=== PATIENT | male | born 1940 | race Caucasian/White ===

== ENCOUNTER 2020-01-18 11:30 | Outpatient (REF) | payer MEDICARE, SELFPAY | END 2020-01-18 11:31 | disposition home or self-care (01) | LOC: HO.HMGCLDS 11:30 | PROVIDERS: Visit Provider Internal Medicine | DX: Z20.828 Contact with and (suspected) exposure to other viral communicable diseases (principal) | CPT/HCPCS: C9803; U0003 ==

== ENCOUNTER 2020-05-30 10:22 | Outpatient (REF) | payer MEDICARE, SELFPAY ==
--- NOTE | ~2020-05-30 | XR_ITS ---
EXAMINATION: BILATERAL FOOT X-RAY CLINICAL INFORMATION: Open wound COMPARISON: None TECHNIQUE: 3 views of each foot FINDINGS: Left: There is hallux valgus deformity at the first MTP joint. Bone alignment is otherwise normal. No fracture or dislocation is seen. There is arthritis at the first MTP joint with joint space narrowing and osteophyte formation. No x-ray evidence of osteomyelitis is seen. There is a small amount of air in the soft tissues adjacent to the medial talar navicular joint. No radiopaque soft tissue foreign body is seen. There are calcaneal spurs. Right foot: There is hallux valgus deformity at the first MTP joint. Bone alignment is otherwise normal. No fracture or dislocation is seen. There is arthritis at the first MTP joint with joint space narrowing and osteophyte formation. No x-ray evidence of osteomyelitis is seen. There is a small amount of air in the soft tissues adjacent to the medial talar navicular joint. No radiopaque soft tissue foreign body is seen. There are calcaneal spurs. 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
--- NOTE | ~2020-05-30 | XR_ITS ---
EXAMINATION: BILATERAL FOOT X-RAY CLINICAL INFORMATION: Open wound COMPARISON: None TECHNIQUE: 3 views of each foot FINDINGS: Left: There is hallux valgus deformity at the first MTP joint. Bone alignment is otherwise normal. No fracture or dislocation is seen. There is arthritis at the first MTP joint with joint space narrowing and osteophyte formation. No x-ray evidence of osteomyelitis is seen. There is a small amount of air in the soft tissues adjacent to the medial talar navicular joint. No radiopaque soft tissue foreign body is seen. There are calcaneal spurs. Right foot: There is hallux valgus deformity at the first MTP joint. Bone alignment is otherwise normal. No fracture or dislocation is seen. There is arthritis at the first MTP joint with joint space narrowing and osteophyte formation. No x-ray evidence of osteomyelitis is seen. There is a small amount of air in the soft tissues adjacent to the medial talar navicular joint. No radiopaque soft tissue foreign body is seen. There are calcaneal spurs. 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 Bilateral calcaneal spurs.
== END 2020-05-30 10:23 | disposition home or self-care (01) ==
LOC: HO.XRAY 10:22
PROVIDERS: PCP Registered Nurse; Visit Provider Student in an Organized Health Care Education/Training Program
DX: L85.3 Xerosis cutis (principal); S81.801A Unspecified open wound, right lower leg, initial encounter
CPT/HCPCS: 73630

== ENCOUNTER 2022-12-13 12:45 | Outpatient (REF) | payer MEDICARE, SELFPAY ==
[2022-12-13 15:04] LABS: Alanine Aminotransferase 21 U/L (0-40); Albumin Level 3.7 g/dL (3.5-5.0); Alkaline Phosphatase 132 U/L (39-117); Anion Gap 13 (12-20); Aspartate Amino Transferase 17 U/L (5-37); Bilirubin Direct 0.2 mg/dL (0.0-0.5); Bilirubin Total 0.5 mg/dL (0.0-1.0); Blood Urea Nitrogen 19 mg/dL (9-16); Calcium 9.1 mg/dL (8.4-10.2); Carbon Dioxide 25 mmol/L (22-29); Chloride 107 mmol/L (96-108); Cholesterol 176 mg/dL (<200); Estimated Glomerular Filt Rate > 60; Glucose Random 120 mg/dL (60-115); HDL Cholesterol 37 mg/dL (>40); LDL Cholesterol Calculated 102 mg/dL (<100); Potassium 3.9 mmol/L (3.3-5.1); Sodium 141 mmol/L (135-145); Total Protein 6.4 g/dL (6.5-8.0); Triglycerides 186 mg/dL (<150)
[2022-12-13 15:08] LABS: TSH reflex Free T4 3.16 uIU/mL (0.32-4.0)
== END 2022-12-13 12:46 | disposition home or self-care (01) ==
LOC: HO.CHCLDS 12:45
PROVIDERS: Visit Provider Student in an Organized Health Care Education/Training Program
DX: I10 Essential (primary) hypertension (principal); E03.9 Hypothyroidism, unspecified
CPT/HCPCS: 36415; 80048; 80061; 80076; 84443

== ENCOUNTER 2023-12-23 10:51 | Outpatient (AMB) | payer OTHER, SELFPAY ==
--- NOTE | 2023-12-23 10:54 | MHC.OFFWIV ---
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 He has been seen at multiple Urgent cares for similar symptoms. He was admitted yesterday at [facility] for cough, chest Xray negative. Pt and family left ED without being seen yesterday. Today he returns with daughter for similar concerns asking for Treatment. Denies fevers, chills, nausea and vomiting. He has been using OTC Cough remedies with no relief. [facility] Medical History (Updated 12/23/23 @ 11:17 by Joie Mendez NP) Cough Social History Patient Tobacco Use Status: Never used Tobacco Review of Systems Const All systems reviewed & are unremarkable except as noted in HPI and below Physical Exam Vital Signs: Last Vital Signs Temp 98 F 12/23/23 10:57 Pulse 63 12/23/23 10:57 BP 162/72 H 12/23/23 10:57 Pulse Ox 96 12/23/23 10:57 Oxygen Delivery Method Room Air 12/23/23 10:57 BMI result Body Mass Index 31.2 Const General: cooperative, comfortable and no acute distress Nutritional Appearance: overweight Orientation/consciousness: patient oriented x3 Resp Effort & Inspection: normal respiratory effort and able to speak in complete sentences Auscultation: no crackles, no rales, no rhonchi and wheezes Cardio Heart sounds: S1 normal heart sound present and S2 normal heart sound present Neuro General: patient oriented x3, gait normal and moves all extremities Psych Speech and movement: Normal speech and movement present Results AMB Rapid Strep AMB Rapid Strep Negative Last Edit by Irwin Baez CMA on 12/23/23 11:11 Results Reviewed Results Reviewed: Laboratory Last Values Strep Scn Rapid Clinic Negative 10/29/24 11:10 Assessment & Plan Assessment & Plan (1) Cough: Code(s): R05.9 - Cough, unspecified Qualifiers: Cough type: subacute Qualified Code(s): R05.2 - Subacute cough Plan: Reviewed Xray report from [facility] (Daughter had on Pt portal). OTC cough remedies Rest. Ordered Prednisone. (2) Acute respiratory disease: Code(s): J06.9 - Acute upper respiratory infection, unspecified Plan: Ordered SARs. Orders: Orders SARS-CoV2/FLU/RSV Today J06.9 - Acute upper respiratory infection, unspecified AMB Rapid Strep Screen Today Z13.9 - Encounter for screening, unspecified Medications: New prednisone 50 mg PO DAILY 5 days 5 tabs 0RF R05.2 - Subacute cough dextromethorphan-guaifenesin 5-100 mg/5 mL (Robitussin Cough-Chest Congestion DM) 10 mL PO Q4-8H PRN 1,000 mL 0RF cough R05.2 - Subacute cough Coding Level of Care Code New Pt Level 3 (38807) Diagnoses Subacute cough R05.2 Cough type: subacute Acute respiratory disease J06.9 Time Spent (min) 15
[2023-12-23 10:57] VITALS: BP 162/72; PULSE 63; TEMP 36.6; O2SAT 96; BMI 31.2
== END 2023-12-23 11:31 | disposition home or self-care (01) ==
PROVIDERS: PCP Registered Nurse; Visit Provider Nurse Practitioner Family
DX: R05.2 Subacute cough (principal); J06.9 Acute upper respiratory infection, unspecified; Z13.9 Encounter for screening, unspecified

== ENCOUNTER 2023-12-23 10:51 | Outpatient (REF) | payer MEDICARE, SELFPAY ==
[2023-12-23 14:17] LABS: Influenza A PCR NEGATIVE (Negative); Influenza B PCR NEGATIVE (Negative); Resp Syncy Virus RNA Qual PCR NEGATIVE (Negative); SARS COV2 PCR INHOUSE NEGATIVE (Negative)
== END 2023-12-23 10:52 | disposition home or self-care (01) ==
LOC: HO.LAB 10:51
PROVIDERS: PCP Registered Nurse; Visit Provider Nurse Practitioner Family
DX: J06.9 Acute upper respiratory infection, unspecified (principal); R05.2 Subacute cough; Z13.9 Encounter for screening, unspecified
CPT/HCPCS: 0241U; 87880; 99202

== ENCOUNTER 2024-01-26 11:13 | Outpatient (REF) | payer OTHER, SELFPAY ==
[2024-01-26 19:52] LABS: Influenza A PCR NEGATIVE (Negative); Influenza B PCR NEGATIVE (Negative); Resp Syncy Virus RNA Qual PCR POSITIVE (Negative); SARS COV2 PCR INHOUSE NEGATIVE (Negative)
== END 2024-01-26 11:14 | disposition home or self-care (01) ==
LOC: HO.LNP 11:13
PROVIDERS: PCP Registered Nurse; Visit Provider Registered Nurse
DX: J06.9 Acute upper respiratory infection, unspecified (principal)
CPT/HCPCS: 0241U; 99212

== ENCOUNTER 2024-01-26 11:13 | Outpatient (AMB) | payer OTHER, SELFPAY ==
--- NOTE | 2024-01-26 13:07 | MHC.OFFWIV ---
Intake Vital Signs 01/26/24 13:08 Height 5 ft 7 in Weight 192 lb BMI 30.1 BP 150/90 H Blood Pressure Location Lt brachial Position Sitting Pulse 64 Pulse Source Pulse Oximeter Temp 99.1 F Temp Source Oral Pulse Oximetry (%) 99 Oxygen Delivery Method Room Air Intake Visit Reasons: EP cold, body aches, cough, mucus Intake Note: Patient here for SOB, wheezing, mucus, cough and congestion which started about 3 days ago. Patient Tobacco Use Status: Never used Tobacco Allergies No Known Allergies Allergy (Verified 01/26/24 13:22) Do you need a note to return to daycare/school/sports/work: No HPI EP cold, body aches, cough, mucus HPI Details This note is constructed using voice recognition software. While every effort has been made to ensure accuracy, matrix bath attendant errors may have been included. The patient is a 83 year old man who presents to the clinic today with body aches, cough, congestion, fevers for the past 3 days. He has no known sick contacts, did have recent URI about a month ago. Did get better after that. He has not taken any medication to help this better other than ibuprofen, which does seem to help the fevers and the body aches. The body aches are generally widespread. [facility] Medical History (Updated 12/23/23 @ 11:17 by Joie Mendez NP) Cough Social History Patient Tobacco Use Status: Never used Tobacco Review of Systems Const All systems reviewed & are unremarkable except as noted in HPI and below Physical Exam Vital Signs: Last Vital Signs Temp 99.1 F 01/26/24 13:08 Pulse 64 01/26/24 13:08 BP 150/90 H 01/26/24 13:08 Pulse Ox 99 01/26/24 13:08 Oxygen Delivery Method Room Air 01/26/24 13:08 BMI result Body Mass Index 30.1 Const General: cooperative, healthy appearing, comfortable and no acute distress Orientation/consciousness: patient oriented x3 Limitations: no limitations HEENT Head: Yes normal to inspection Ears: hearing grossly normal bilaterally, external ears normal and TM's normal bilaterally General nose exam: Normal external nose present, Normal nares present and No nasal discharge present Face and sinus: Yes normal facial exam and Yes sinuses nontender Mouth: Normal oral and palatal mucosa present and moist mucous membranes Throat: Yes tonsils normal, Yes uvula midline and Yes posterior oropharynx abnormal (Erythema) Eyes General: appearance normal, both eyes and all related structures Neck Neck: Yes normal visual inspection Resp Effort & Inspection: normal respiratory effort, able to speak in complete sentences, Actively coughing, no respiratory distress, not tachypneic, no tripod positioning and no use of accessory muscles Auscultation: clear to auscultation bilaterally Cardio Jugular venous distension: no JVD Rate: regular rate Rhythm: regular rhythm Heart sounds: S1 normal heart sound present, S2 normal heart sound present, no click, no gallops, no murmurs and no rubs Skin General skin exam: no rashes or lesions noted, elasticity normal and turgor normal Neuro General: patient oriented x3 Extrem General: Yes normal to inspection and Yes no clubbing, cyanosis or edema Assessment & Plan Assessment & Plan (1) URI (upper respiratory infection): Code(s): J06.9 - Acute upper respiratory infection, unspecified Qualifiers: URI type: unspecified URI Qualified Code(s): J06.9 - Acute upper respiratory infection, unspecified Plan: Viral swab obtained to rule out Covid, Influenza, and RSV based on symptoms. Advised mask wearing while symptomatic and quarantine per current CDC guidelines. Reviewed at home support methods including hydration, humidification, vix vapor rub, sinus rinse, and otc treatment options. Discussed treatment with antiviral therapy for covid with paxlovid and with Tamiflu for influenza, including appropriate use and side effects, and need to start medication within 5 day of symptom onset, preferably within 48 hours of symptom onset. Patient wishes to proceed with antiviral therapy for flu. Benzonatate sent for symptomatic management. Advised follow up with worsening symptoms such as dyspnea at rest, which would require emergent evaluation. Orders: Orders SARS-CoV2/FLU/RSV Today J06.9 - Acute upper respiratory infection, unspecified Medications: New benzonatate 100 mg PO TID PRN 15 caps 0RF Cough 5 days Coding Level of Care Code Est Pt Level 3 (10562) Diagnoses Upper respiratory tract infection, unspecified type J06.9 URI type: unspecified URI
[2024-01-26 13:08] VITALS: BP 150/90; PULSE 64; TEMP 37.3; O2SAT 99; BMI 30.1
== END 2024-01-26 13:51 | disposition home or self-care (01) ==
PROVIDERS: PCP Registered Nurse; Visit Provider Registered Nurse
DX: J06.9 Acute upper respiratory infection, unspecified (principal)

== ENCOUNTER 2024-08-19 11:57 | Outpatient (REF) | payer OTHER, SELFPAY ==
--- OUTSIDE RECORDS SUMMARY | 2024-08-19 14:21 | XMS_ITS | Clinical Summary ---
Author Organization [facility] Address [address] [place] [address] Phone Care Team Providers Care Business Development Professional Name Role Phone Meche Dumont MD Primary Care Provider [phone] Allergies No known active allergies Medications No known medications Active Problems No known active problems Social History Tobacco Use Types Packs/Day Years Used Date Smoking Tobacco: Never Assessed Sex and Gender Information Value Date Recorded Sex Assigned at Not on file Legal Sex Male 2:26 PM EST Gender Identity Not on file Sexual Orientation Not on file Obstetrics History Last Filed Vital Signs Vital Sign Reading Time Taken Comments Blood Pressure 155/61 01/21/2024 9:23 AM EST Pulse 62 01/21/2024 9:23 AM EST Temperature 36.7 C (98.1 F) 01/21/2024 9:23 AM EST Respiratory Rate 18 01/21/2024 9:23 AM EST Oxygen Saturation 99% 01/21/2024 9:23 AM EST Inhaled Oxygen Concentration - - Weight 89.8 kg (198 lb) 01/21/2024 9:23 AM EST Height 167.6 cm (5' 6 ) 01/21/2024 9:23 AM EST Body Mass Index 31.96 01/21/2024 9:23 AM EST Plan of Treatment Health Maintenance Due Date Last Done Comments Pneumococcal Vaccine: 50+ Years (1 of 1 - PCV) 10/13/1991 Zoster Vaccines (1 of 2) 10/13/1991 RSV Immunization Adult Patients (1 - 1-dose 75+ series) 2016 Depression Screening 01/23/2022 Falls Risk Assessment 01/23/2022 Medicare Annual Wellness Visit 01/23/2022 Social Influencers of Health Screening 01/23/2022 COVID-19 Vaccine (3 - 2023-2 5 season) 2023 02/14/2021, 01/24/2021 Hypertension/CHF/CAD Annual BMP Blood Test 01/21/2024 Influenza Vaccine (Season Ended) 2024 11/24/2019, 01/08/2019 Cholesterol Screening (Lipid Panel) 12/14/2027 12/13/2022 DTaP,Tdap,and Td Vaccines (2 - Td or Tdap) 11/23/2029 11/24/2019 HIB Vaccines Aged Out No longer eligi ble based on patient's age to complete this topic HPV Vaccines Aged Out No longer eligi ble based on patient's age to complete this topic Hepatitis A Vaccines Aged Out No long er eligible based on patient's age to complete this topic Hepatitis B Vaccines Aged Out No long er eligible based on patient's age to complete this topic IPV Vaccines Aged Out No longer eligi ble based on patient's age to complete this topic MMR Vaccines Aged Out No longer eligi ble based on patient's age to complete this topic Meningococcal ACWY Vaccine Aged Out N o longer eligible based on patient's age to complete this topic Meningococcal B Vaccine Aged Out No l onger eligible based on patient's age to complete this topic RSV Immunization Patients Under 20 months Aged Out No longer eligible b ased on patient's age to complete this topic Varicella Vaccines Aged Out No longer eligible based on patient's age to complete this topic Insurance [facility] [employer] Member Subscriber Plan / Payer (Ef fective 2016-Present) Name:Roger Harper Relation to Subscriber:Self Name:Roger Harper Payer ID:[id number] Group ID:[id number] Type:Not on file Address: [place] [address] [address] [id number] Care Teams Business Development Professional Relationship Specialty Start Date End Date Meche Dumont MD [address] [place] [id number] PCP - General Family Medicine 01/21/24
[2024-08-19 14:30] LABS: MANUAL DIFF FLAG NO
[2024-08-19 14:37] LABS: Basophils Absolute Auto 0.1 X10*3/uL (0.0-0.2); Basophils Percent Auto 0.7 % (0-2); Eosinophils Absolute Auto 0.1 X10*3/uL (0.0-0.4); Eosinophils Percent Auto 1.5 % (0-4); Hematocrit 45.5 % (42.0-52.0); Hemoglobin 14.9 g/dl (14.0-18.0); Imm Gran Abs Auto 0.15 X10*3/uL (0.00-0.03); Lymphocytes Absolute Auto 1.5 X10*3/uL (1.2-4.9); Lymphocytes Percent Auto 19.7 % (20-40); Mean Corpuscular HGB Conc 32.7 g/dl (31.0-36.0); Mean Corpuscular Hemoglobin 26.2 pg (27.0-33.0); Mean Platelet Volume 10.8 fL (9.4-12.4); Monocytes Absolute Auto 0.6 X10*3/uL (0.1-1.2); Monocytes Percent Auto 7.7 % (2-11); Neutrophils Absolute Auto 5.1 x10*3/uL (2.0-8.3); Neutrophils Percent Auto 68.4 % (45-73); Platelet Count 295 X10*3/uL (160-400); Red Blood Count 5.69 X10*6/uL (4.60-5.80); Red Cell Distribution Width 15.2 % (11.0-16.0); White Blood Count 7.5 X10*3/uL (4.8-10.8)
[2024-08-19 14:53] LABS: Anion Gap 9 (12-20); Blood Urea Nitrogen 18 mg/dL (9-16); C Reactive Protein 2.39 mg/dL (< or = 0.50); Calcium 8.5 mg/dL (8.4-10.2); Carbon Dioxide 27 mmol/L (22-29); Chloride 109 mmol/L (96-108); Estimated Glomerular Filt Rate > 60; Glucose Random 104 mg/dL (60-115); Potassium 4.4 mmol/L (3.3-5.1); Sodium 141 mmol/L (135-145)
[2024-08-19 15:18] LABS: Erythrocyte Sedimentation Rate 5 MM/HR (0-15)
== END 2024-08-19 11:58 | disposition home or self-care (01) ==
LOC: HO.CHCLDS 11:57
PROVIDERS: Visit Provider Internal Medicine
DX: R05.1 Acute cough (principal)
CPT/HCPCS: 36415; 80048; 85025; 85652; 86140

== ENCOUNTER 2024-08-19 13:01 | Outpatient (REF) | payer OTHER, SELFPAY ==
--- NOTE | ~2024-08-19 | XR_ITS ---
EXAMINATION: XR CHEST CLINICAL INFORMATION: cough COMPARISON: 03/13/2017. TECHNIQUE: 2 views of the chest were obtained. FINDINGS: The cardiac, hilar, and mediastinal contours are normal. The lungs are clear bilaterally. There is no pneumothorax or pleural effusion. There is no focal osseous or soft tissue abnormality. XR/XR chest 2V IMPRESSION: No active pulmonary disease. Electronically signed by: Freddy Albarran MD 08/19/2024 01:43 PM EDT
== END 2024-08-19 13:02 | disposition home or self-care (01) ==
LOC: HO.XRAY 13:01
PROVIDERS: PCP Student in an Organized Health Care Education/Training Program; Visit Provider Internal Medicine
DX: R05.1 Acute cough (principal)
CPT/HCPCS: 71046

== ENCOUNTER → 2024-08-19 13:06 | Outpatient (BNV) | payer OTHER, SELFPAY | PROVIDERS: PCP Student in an Organized Health Care Education/Training Program; Visit Provider Radiology Diagnostic Radiology | DX: R05.9 Cough, unspecified (principal) | CPT/HCPCS: 71046 ==

== ENCOUNTER 2024-09-01 09:00 | Outpatient (REF) | payer OTHER, SELFPAY | END 2024-09-01 09:01 | disposition home or self-care (01) | LOC: HO.HMGCX 09:00 | PROVIDERS: PCP Internal Medicine; Visit Provider Internal Medicine | DX: I10 Essential (primary) hypertension (principal); M25.511 Pain in right shoulder; R42 Dizziness and giddiness; R03.0 Elevated blood-pressure reading, without diagnosis of hypertension; H91.93 Unspecified hearing loss, bilateral; E66.3 Overweight; Z76.89 Persons encountering health services in other specified circumstances; Z68.29 Body mass index [BMI] 29.0-29.9, adult | CPT/HCPCS: 99202 ==

== ENCOUNTER 2024-09-01 09:00 | Outpatient (AMB) | payer OTHER, SELFPAY ==
[2024-09-01 09:06] VITALS: BP 156/80; PULSE 68; TEMP 36.2; O2SAT 99; BMI 29.7
--- NOTE | 2024-09-01 09:06 | A.OFFPC_ITS ---
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 Gunite Nozzle Operator Required: No Allergies No Known Allergies Allergy (Verified 09/01/24 09:10) Medication List - Last Reconciled 09/01/24 by Juancarlos Shaffer MD albuterol sulfate 90 mcg/actuation (Ventolin HFA) 2 puffs inhalation Q4-6H PRN benzonatate 100 mg PO TID PRN 5 days fluticasone propionate 50 mcg/actuation 1 spray intranasal Q12H Tobacco use date assessed: 09/01/24 Dental Screening Did you have a dental visit in the last 12 months?: Yes Did you have a dental problem in the last 6 months where you did not have access to dental care?: No Was dental information given to patient?: Patient has dentist HPI OK chicho RAINEY PAPER CORE MACHINE OPERATOR appointment HPI Details New patient establish care History - The patient is an 83-year-old male pre senting with shoulder pain and hypertension. He is here with his - The patient reports shoulder pain pers isting for over eight months, which radiates down his arm. The pain intensifies when lying down and requires him to support his arm due to the discomfort. - The pain began more than eight months ago and has progressively affected movement, particularly noticed at night. - The patient has been taking ibuprofen and Tylenol for pain relief. However medications are not working he is unable to lift his right arm above his head - The patient experiences nocturnal dizz iness, especially upon waking. - An x-ray of the shoulder and neck was performed at some other facility that patient can not recall about a month ago, but results are unavailable at this visit. - The patient forgets to take his prescr ibed antihypertensive medication on occasion. - BMI is elevated need to lose weight - patient is a very hard of hearing, had a hearing test and hearing aid was recommended, he got the hearing it but felt discomfort so declined to use it That was long time ago patient is requesting a new audiology appointment he will consider A New Hearing fit Medical History: - Essential Hypertension - right shoulder pain - overweight - nocturnal dizziness Health Maintenance - The patient has no history of colonosc opy. Medications - Hydrochlorothiazide with enalapril for hypertension. - Ibuprofen for pain management in the p ast. - Tylenol for pain relief. - No routine use of hearing aids despite hearing difficulties. Social History - The patient does not consume breakfast on the day of the visit due to a planned fasting blood test. Family History - Family history of diabetes mellitus. Problem List - Essential Hypertension - Shoulder Pain right - Hearing Loss bilateral - Varicose Veins lower extremity - elevated BMI Patient Instructions - Take blood pressure medication every d ay. - Use a method such as placing medicatio n next to a toothbrush to aid in remembering daily doses. - Undergo blood tests today, including c hecks on liver, kidney, vitamin D, B12, and thyroid levels. - Schedule an audiology appointment for a hearing assessment. - Understand recommendations for a colon oscopy for colon cancer screening. - Consult orthopedics for further evalua tion of the shoulder pain. 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 Review of Systems - General: No fever no chills - Neurological: No headaches no dizzin ess - Ear nose throat: No sore throat no hearing difficulty no ear pain - Cardiovascular: No syncope, no chest pain, no palpitations - Gastrointestinal: No nausea vomiting or diarrhea - Endocrine: No polyuria polydipsia no heat intolerance - Genitourinary: No dysuria - Skin: No new complaints Physical Exam General: Cooperative, healthy appearing, comfortable, no acute distress Orientation: Patient oriented x3 Head: Normal to inspection Ears: Hearing issues noted, appointment with audiology recommended, ears clean no pain Nose: Normal external nose present Face and sinus: Normal facial exam Eyes: Appearance normal, extraocular movement intact pupils reactive Neck: Normal visual inspection and supple, x-ray ordered Respiratory: Normal respiratory effort and able to speak in complete sentences. Clear to auscultation, no stridor Cardiovascular: S1 and S2 regular in rate and rhythm GI: Normal to inspection. Soft to palpation and nontender Skin: Turgor normal, no acute findings Neuro: Patient oriented x3, motor sensory intact, balance intact, tandem pass Extremities: Normal to inspection, varicose veins noted small [facility] Medical History Cough Social History Patient Tobacco Use Status: Never used Tobacco Questionnaire PHQ-9 Over the last 2 weeks, how often have you been bothered by any of the following problems? 55294 - PHQ-9 Billing: Patient declined-do not bill Source: Developed by Drs. New Alcala, Latoya Us, Michael Sy and colleagues, with an educational segun from [employer]. Physical exam (Primary Care) Vital Signs: Last Vital Signs Temp 97.1 F 09/01/24 09:06 Pulse 68 09/01/24 09:06 BP 156/80 H 09/01/24 09:06 Pulse Ox 99 09/01/24 09:06 Oxygen Delivery Method Room Air 09/01/24 09:06 BMI result Body Mass Index 29.7 Tobacco/Smoking Status: Tobacco use Status Tobacco use date assessed 09/01/24 09/01/24 09:13 Patient Tobacco Use Status Never used Tobacco 09/01/24 09:13 Coding Level of Care Code New Pt Level 4 (26929) Diagnoses Establishing care with new doctor, encounter for Z76.89 Acute pain of right shoulder M25.511 Chronicity: acute Elevated blood pressure reading R03.0 Hypertension, essential I10 Hearing difficulty of both ears H91.93 Laterality: bilateral Overweight (BMI 25.0-29.9) E66.3 Colon cancer screening Z12.11 Assessment & Plan Assessment & Plan (1) Establishing care with new doctor, encounter for: Code(s): Z76.89 - Persons encountering health services in other specified circumstances Category: Medical (2) Shoulder pain, right: Code(s): M25.511 - Pain in right shoulder Category: Medical Qualifiers: Chronicity: acute Qualified Code(s): M25.511 - Pain in right shoulder (3) Elevated blood pressure reading: Code(s): R03.0 - Elevated blood-pressure reading, without diagnosis of hypertension Category: Medical (4) Hypertension, essential: Code(s): I10 - Essential (primary) hypertension Category: Medical (5) Hearing difficulty: Code(s): H91.90 - Unspecified hearing loss, unspecified ear Category: Medical Qualifiers: Laterality: bilateral Qualified Code(s): H91.93 - Unspecified hearing loss, bilateral (6) Overweight (BMI 25.0-29.9): Code(s): E66.3 - Overweight Category: Medical (7) Colon cancer screening: Code(s): Z12.11 - Encounter for screening for malignant neoplasm of colon Category: Medical Plan New patient establish care History - The patient is an 83-year-old male presenting with shoulder pain and hypertension. He is here with his - The patient reports shoulder pain persisting for over eight months, which radiates down his arm. The pain intensifies when lying down and requires him to support his arm due to the discomfort. - The pain began more than eight months ago and has progressively affected movement, particularly noticed at night. - The patient has been taking ibuprofen and Tylenol for pain relief. However medications are not working he is unable to lift his right arm above his head - The patient experiences nocturnal dizziness, especially upon waking. - An x-ray of the shoulder and neck was performed at some other facility that patient can not recall about a month ago, but results are unavailable at this visit. - The patient forgets to take his prescribed antihypertensive medication on occasion. - BMI is elevated need to lose weight - patient is a very hard of hearing, had a hearing test and hearing aid was recommended, he got the hearing it but felt discomfort so declined to use it That was long time ago patient is requesting a new audiology appointment he will consider A New Hearing fit Medical History: - Essential Hypertension - right shoulder pain - overweight - nocturnal dizziness Health Maintenance - The patient has no history of colonoscopy. Medications - Hydrochlorothiazide with enalapril for hypertension. - Ibuprofen for pain management in the past. - Tylenol for pain relief. - No routine use of hearing aids despite hearing difficulties. Social History - The patient does not consume breakfast on the day of the visit due to a planned fasting blood test. Family History - Family history of diabetes mellitus. Problem List - Essential Hypertension - Shoulder Pain right - Hearing Loss bilateral - Varicose Veins lower extremity - elevated BMI Patient Instructions - Take blood pressure medication every day. - Use a method such as placing medication next to a toothbrush to aid in remembering daily doses. - Undergo blood tests today, including checks on liver, kidney, vitamin D, B12, and thyroid levels. - Schedule an audiology appointment for a hearing assessment. - Understand recommendations for a colonoscopy for colon cancer screening. - Consult orthopedics for further evaluation of the shoulder pain. 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 Orders: Orders Vitamin B12 Today E66.09 - Other obesity due to excess calories, I10 - Essential (primary) hypertension, M25.511 - Pain in right shoulder, M54.12 - Radiculopathy, cervical region XR cervical spine 2V Today M25.511 - Pain in right shoulder, M54.12 - Radiculopathy, cervical region XR shoulder RT min 2V Today M54.12 - Radiculopathy, cervical region Complete Blood Count Auto Diff Today E66.09 - Other obesity due to excess calories, I10 - Essential (primary) hypertension, M25.511 - Pain in right shoulder, M54.12 - Radiculopathy, cervical region Comprehensive Lucan. Panel Fast Today E66.09 - Other obesity due to excess calories, I10 - Essential (primary) hypertension, M25.511 - Pain in right shoulder, M54.12 - Radiculopathy, cervical region Lipid Panel Today E66.09 - Other obesity due to excess calories, I10 - Essential (primary) hypertension, M25.511 - Pain in right shoulder, M54.12 - Radiculopathy, cervical region Vitamin D 25-OH (D2 and D3) Today E66.09 - Other obesity due to excess calories, I10 - Essential (primary) hypertension, M25.511 - Pain in right shoulder, M54.12 - Radiculopathy, cervical region TSH reflex Free T4 Today E66.09 - Other obesity due to excess calories, I10 - Essential (primary) hypertension, M25.511 - Pain in right shoulder, M54.12 - Radiculopathy, cervical region Referrals Audiology Referral H91.90 - Unspecified hearing loss, unspecified ear Gastroenterology Referral Z12.11 - Encounter for screening for malignant neoplasm of colon Medications: New enalapril-hydrochlorothiazide 10-25 mg 1 tab PO QAM 90 tabs 0RF tramadol 50 mg PO BEDTIME 30 tabs 2RF
--- OUTSIDE RECORDS SUMMARY | 2024-09-01 09:15 | XMS_ITS | Clinical Summary ---
Author Organization [facility] Address [address] [place] [address] Phone Care Team Providers Care Machining Technician Name Role Phone Meche Dumont MD Primary Care Provider [phone] Allergies No known active allergies Medications No [...] Annual BMP Blood Test 01/21/2024 Influenza Vaccine (#1) 2024 0, 01/08/2019 Cholesterol Screening (Lipid Panel) 12/14/2027 12/13/2022 [...] patient's age to complete this topic Insurance [facility] [employer] MEDICARE Member Subscriber Plan / Payer (Ef fective 2016-Present) Name:Roger Harper Relation to Subscriber:Self Name:Roger Harper Payer ID:[id number] Group ID:[id number] Type:Not on file Address: [place] [address] [address] [address] Care Teams Machining Technician Relationship Specialty Start Date End Date Meche Dumont MD [address] [place] [id number] PCP - General Family Medicine 01/21/24
--- OUTSIDE RECORDS SUMMARY | 2024-09-01 09:15 | XMS_ITS | Encounter Summary ---
Author Organization [employer] Address [address] [facility] [address] [place] [address] Care Team Providers Care Business Quality Assurance Analyst Name Role Phone Meche Dumont MD Primary Care Provider [phone] Encounter Details Date Type Department Care Team (Late st Contact Info) Description 12/23/2023 Orders Only [facility] [address] [place] [address] Provider, MD Anjel Social History Tobacco Use Types Packs/Day Years Used Date Smoking Tobacco: Never Smokeless Tobacco: Never Alcohol Use Standard Drinks/Week Comments Never 0 (1 standard drink = 0.6 oz pur e alcohol) Housing Stability Answer Date Recorded What is your housing situation today? I have betty karma 01/10/[address] you li ve. Do you have problems with any of the following? None of the above 01/10/2023 Food Insecurity Answer Date Recorded Within the past 12 months, y ou worried that your food would run out before you got money to buy more: Never True 01/10/2023 Within the past 12 months,th e food you bought just didn't last and you didn't have enough money to get more: Never True Transportation Answer Date Recorded In the past 12 months, has l ack of transportation kept you from medical appts, meetings, work or from getting things needed for daily living? No 01/10/2023 Utilities Answer Date Recorded In the past 12 months, has t he electric, gas, oil or water company threatened to shut off services in your home? No 01/10/2023 Sex and Gender Information Value Date Recorded Sex Assigned at Male 12/24/2021 10:32 AM EDT Legal Sex Male 10:32 AM EDT Gender Identity Male 12/24/2021 10:32 AM EDT Sexual Orientation Straight 12/24/2021 10 :32 AM EDT documented as of this encounter Plan of Treatment Upcoming Encounters Date Type Department Care Team (Late st Contact Info) Description 09/09/2024 10:00 AM EDT Office Visit [facility] [address] [place] [address] Elvira Faulkner 09/17/2024 10:00 AM EDT Office Visit [facility] [address] [place] [address] Meche Dumont MD [address] [place] [address] 09/23/2024 9:00 AM EDT Nurse Only [facility] [address] [place] [address] documented as of this encounter Procedures Procedure Name Priority Date/Time Associated Diagnosis Comments XR CHEST 2 VIEWS Routine 12/22/2023 1:47 PM EDT documented in this encounter Results * XR Chest 2 Views (12/22/2023 1:47 PM EDT) Anatomical Region Laterality Modality Chest Radiographic Kenzie ging us Historical Provider MD ALMANZA XR PROCEDURES Final R esult documented in this encounter Visit Diagnoses Not on filedocumented in this encounter Care Teams Business Quality Assurance Analyst Relationship Specialty Start Date End Date Meche Dumont MD [address] [place] [id number] PCP - General Family Medicine 09/16/17 documented as of this encounter
== END 2024-09-01 09:35 | disposition home or self-care (01) ==
LOC: HO.HMCC 09:01
PROVIDERS: PCP Registered Nurse; Visit Provider Internal Medicine
DX: Z76.89 Persons encountering health services in other specified circumstances (principal); M25.511 Pain in right shoulder; R03.0 Elevated blood-pressure reading, without diagnosis of hypertension; I10 Essential (primary) hypertension; H91.93 Unspecified hearing loss, bilateral; E66.3 Overweight; Z12.11 Encounter for screening for malignant neoplasm of colon

== ENCOUNTER 2024-09-02 06:48 | Outpatient (REF) | payer OTHER, SELFPAY ==
--- NOTE | ~2024-09-02 | XR_ITS ---
EXAMINATION: XR SHOULDER, RIGHT CLINICAL INFORMATION: M54.12 - Radiculopathy, cervical region COMPARISON: None available. TECHNIQUE: AP external rotation, Grashey, scapular Y, and axillary views of the right shoulder. FINDINGS: Degenerative changes in the glenohumeral joint, greater tuberosity of the humerus. There is a 7 mm gap at the acromioclavicular joint. No acute cortical disruption or malalignment. No lytic or blastic lesions. XR/XR shoulder RT min 2V IMPRESSION: Degenerative changes, right shoulder. 7 mm , up to normal limits acromioclavicular joint. Electronically signed by: Linden Davis MD 09/02/2024 10:34 AM EDT
--- NOTE | ~2024-09-02 | XR_ITS ---
EXAMINATION: XR CERVICAL SPINE CLINICAL INFORMATION: M54.12 - Radiculopathy, cervical region COMPARISON: None available. TECHNIQUE: AP and lateral views FINDINGS: Craniocervical junction is intact. Marginal osteophyte formation and syndesmophyte formation with preservation of the intervertebral disc height from C5 to C7. Marginal osteophyte formation, small at C3-4 and C4-5 levels. No acute cortical disruption. No gross malalignment from the craniocervical junction to C7. Upper airway is patent. Edentulous, maxilla Calcification of the nuchal ligament at C5. Occipital exostosis.. XR/XR cervical spine 2V IMPRESSION: Multilevel cervical spondylosis. Electronically signed by: Linden Davis MD 09/02/2024 10:36 AM EDT
--- OUTSIDE RECORDS SUMMARY | 2024-09-02 06:51 | XMS_ITS | Encounter Summary ---
Author Organization [employer] Address [address] [facility] [address] [place] [address] Care Team Providers Care Airport Refueling Handler Name Role Phone Meche Dumont MD Primary Care Provider [phone] Encounter Details Date Type Department Care Team (Late st Contact Info) Description 12/23/2023 Orders Only [facility] [address] [place] [address] Provider, MD Anjel Social History Tobacco Use [...] Description 09/09/2024 10:00 AM EDT Office Visit [facility] AD[facility] [address] [place] [address] Elvira Faulkner 09/17/2024 10:00 AM EDT Office Visit [facility] [address] [place] [address] Meche Dumont MD [address] [place] [address] 09/23/2024 9:00 AM EDT Nurse Only [facility] [address] [place] [address] documented as of this encounter Procedures Procedure [...] on filedocumented in this encounter Care Teams Airport Refueling Handler Relationship Specialty Start Date End Date Meche Dumont MD [address] [place] [id number] PCP - General Family Medicine 09/16/17 documented as of this encounter
--- OUTSIDE RECORDS SUMMARY | 2024-09-02 06:51 | XMS_ITS | Clinical Summary ---
Author Organization [facility] Address [address] [place] [address] Phone Care Team Providers Care Director Of Accreditation Name Role Phone Meche Dumont MD Primary Care Provider [phone] Allergies No known active allergies Medications No [...] patient's age to complete this topic Insurance [facility] [employer] MEDICARE Member Subscriber Plan / Payer (Ef fective 2016-Present) Name:Roger Harper Relation to Subscriber:Self Name:Roger Harper Payer ID:[id number] Group ID:[id number] Type:Not on file Address: [place] [address] [address] [address] Care Teams Director Of Accreditation Relationship Specialty Start Date End Date Meche Dumont MD [address] [place] [id number] PCP - General Family Medicine 01/21/24
[2024-09-02 10:30] LABS: MANUAL DIFF FLAG NO
[2024-09-02 10:39] LABS: Hematocrit 43.0 % (42.0-52.0); Hemoglobin 13.8 g/dl (14.0-18.0); Imm Gran Abs Auto 0.05 X10*3/uL (0.00-0.03); Imm Gran Pct Auto 0.8 % (0.0-0.4); Lymphocytes Absolute Auto 1.2 X10*3/uL (1.2-4.9); Mean Corpuscular HGB Conc 32.1 g/dl (31.0-36.0); Mean Corpuscular Hemoglobin 25.8 pg (27.0-33.0); Mean Corpuscular Volume 80.5 fL (80.0-98.0); NRBC Abs Auto 0.000 X10*3/uL (0.0-0.012); NRBC Pct Auto 0.0 /100WBC (0.0-0.2); Platelet Count 294 X10*3/uL (160-400); Red Blood Count 5.34 X10*6/uL (4.60-5.80); White Blood Count 6.2 X10*3/uL (4.8-10.8)
[2024-09-02 11:06] LABS: Alanine Aminotransferase 12 U/L (0-40); Albumin Level 3.7 g/dL (3.5-5.0); Alkaline Phosphatase 121 U/L (39-117); Anion Gap 9 (12-20); Aspartate Amino Transferase 22 U/L (5-37); Blood Urea Nitrogen 23 mg/dL (9-16); Calcium 8.4 mg/dL (8.4-10.2); Carbon Dioxide 26 mmol/L (22-29); Chloride 110 mmol/L (96-108); Cholesterol 140 mg/dL (<200); Estimated Glomerular Filt Rate 55; HDL Cholesterol 34 mg/dL (>40); Potassium 4.5 mmol/L (3.3-5.1); Sodium 140 mmol/L (135-145); Total Protein 6.1 g/dL (6.5-8.0); Triglycerides 144 mg/dL (<150)
[2024-09-02 11:21] LABS: Vitamin B12 512 pg/mL (200-900)
[2024-09-02 11:47] LABS: Free T4 (Free Thyroxine) 0.89 ng/dL (0.71-1.85)
[2024-09-06 13:18] LABS: Vitamin D 25-OH, D2 <4 ng/mL; Vitamin D 25-OH, D3 29 ng/mL; Vitamin D 25-OH, Total 29 ng/mL (30-100)
== END 2024-09-02 06:49 | disposition home or self-care (01) ==
LOC: HO.HMGCX 06:48
PROVIDERS: PCP Internal Medicine; Visit Provider Internal Medicine
DX: M47.22 Other spondylosis with radiculopathy, cervical region (principal); I10 Essential (primary) hypertension; M25.511 Pain in right shoulder; E66.09 Other obesity due to excess calories; M24.111 Other articular cartilage disorders, right shoulder
CPT/HCPCS: 36415; 72040; 73030; 80053; 80061; 82306; 82607; 84439; 84443; 85025

== ENCOUNTER → 2024-09-02 08:35 | Outpatient (BNV) | payer OTHER, SELFPAY | PROVIDERS: PCP Internal Medicine; Visit Provider Radiology Diagnostic Radiology | DX: M47.812 Spondylosis without myelopathy or radiculopathy, cervical region (principal); M19.011 Primary osteoarthritis, right shoulder | CPT/HCPCS: 72040; 73030 ==

== ENCOUNTER 2024-09-07 12:23 | Outpatient (AMB) | payer OTHER, SELFPAY ==
[2024-09-07 12:31] VITALS: BP 138/82; PULSE 65; O2SAT 98; BMI 29.5
--- NOTE | 2024-09-07 12:31 | MHC.PC.OV ---
Vital Signs 09/07/24 12:31 Height 5 ft 7 in Weight 188 lb 4 oz BMI 29.5 BP 138/82 Blood Pressure Location Lt brachial Position Sitting Pulse 65 Pulse Source Pulse Oximeter Pulse Oximetry (%) 98 Oxygen Delivery Method Room Air Intake Visit Reasons: follow up re: BP/Labs Allergies No Known Allergies Allergy (Verified 09/07/24 12:32) Medication List - Last Reconciled 09/07/24 by Juancarlos Shaffer MD enalapril-hydrochlorothiazide 10-25 mg 1 tab PO QAM tramadol 50 mg PO BEDTIME Tobacco use date assessed: 09/01/24 Fall risk assessment: No Falls in past year Last assessed Fall Risk: 09/07/24 Dental Screening Dental Screen Date: 09/07/24 Did you have a dental visit in the last 12 months?: No Did you have a dental problem in the last 6 months where you did not have access to dental care?: No Was dental information given to patient?: Patient declined HPI follow up re: BP/Labs HPI Details - The patient is an 83-year-old male presenting or ongoing care concerns related to blood pressure management and complications, such as renal health monitoring. - noted concern over potential kidney function decline, initiated by high blood pressure. - Presents with elevated fasting blood sugar levels, leading to a diagnosis of prediabetes. Emphasized sugar and carbohydrate intake management discussed to prevent progression to diabetes. - Discusses recent identification of low thyroid function, without prior awareness. Absence of specific symptoms related to hypothyroidism noted. Response to recent thyroid function tests awaited. - Expresses dietary restrictions and challenges, particularly with consuming foods like pasta, as part of managing prediabetes. - Reports decreased vitamin D levels based on recent lab results, contributing to plans for supplementation. - Articulates concerns regarding hearing, though specific symptoms or duration are not stated. Acknowledges need for audiology appointment and evaluation. Medications: - Enalapril hydrochlorothiazide 10-25 mg daily for hypertension - Tramadol for arthritic joint pain, taken one at night, providing some relief - Pain medication regimen ongoing with noted improvements in arthritic symptoms Diagnostic Results: - Labs: Blood pressure is stable; kidney function shows mild issues possibly related to hypertension; fasting sugar levels indicate prediabetes; vitamin D levels are low; thyroid function tests suggest hypothyroidism. Problem List - Essential Hypertension - Prediabetes - Hypothyroidism - Vitamin D Deficiency - Pain related to Arthritic Joints Patient Instructions - Continue taking prescribed blood pressure medication. - Start a vitamin D supplement daily for low vitamin D levels. - Follow dietary recommendations to reduce sugar and carbohydrate intake. - Take prescribed thyroid medication on an empty stomach, without eating for 20 minutes after taking. - Make an appointment for a hearing evaluation. - Continue taking pain medication at bedtime as needed for joint pain relief. - Plan to complete blood testing two days before the next scheduled appointment in November. Review of Systems - General: No fever no chills - Neurological: No headaches no dizziness - Ear nose throat: No sore throat no hearing difficulty no ear pain - Cardiovascular: No syncope, no chest pain, no palpitations - Gastrointestinal: No nausea vomiting or diarrhea - Endocrine: No polyuria polydipsia no heat intolerance - Genitourinary: No dysuria , no blood in urine Physical Exam - General: No acute distress - HEENT: No acute findings - Neck: Supple - Respiratory system: Able to talk in full sentences, no audible wheeze - Cardiovascular: S1-S2 regular in rate and rhythm - Gastrointestinal: No pain - Extremities: No new findings - CHIEF PORT DIRECTOR: Alert awake oriented x3 motor sensory intact - Skin: Normal turgor [facility] Medical History Cough Surgical History S/P appendectomy Social History Patient Tobacco Use Status: Never used Tobacco Cognitive needs: No Hearing needs: No Vision needs: No Questionnaire PHQ-9 Over the last 2 weeks, how often have you been bothered by any of the following problems? 1. Little interest or pleasure in doing things: not at all 2. Feeling down, depressed, or hopeless: not at all 3. Trouble falling or staying asleep, or sleeping too much: not at all 4. Feeling tired or having little energy: not at all 5. Poor appetite or overeating: not at all 6. Feeling bad about yourself - or that you are a failure or have let yourself or your family down: not at all 7. Trouble concentrating on things, such as reading the newspaper or watching television: not at all 8. Moving or speaking so slowly that other people could have noticed. Or the opposite - being so fidgety or restless that you have been moving around a lot more than usual: not at all 9. Thoughts that you would be better off or of hurting yourself in some way: not at all Total score: 0 Depression Screening Interpretation: Negative Depression Screening Done: Yes 60404 - PHQ-9 Billing: Yes Source: Developed by Drs. New Alcala, Latoya Us, Michael Sy and colleagues, with an educational segun from [employer]. Thrive Questionnaire Date Thrive assessed: 09/07/24 I am a: Patient What is your living situation today?: I choose not to answer this question Within the past 12 months, did the food you bought not last and you didn't have the money to get more?: I choose not to answer this question Within the past 12 months, did you worry whether your food would run out before you got money to buy more?: I choose not to answer this question Do you have trouble paying for medicines?: I choose not to answer this question Do you have trouble getting transportation to medical appointments?: I choose not to answer this question Do you have trouble paying your heating and electricity bill?: I choose not to answer this question Do you have trouble taking care of your child, family member or friend?: I choose not to answer this question Do you have trouble with day-to-day activities such as bathing, preparing meals, shopping, managing finances, etc.?: I choose not to answer this question Are you currently unemployed and looking for a job?: I choose not to answer this question Are you interested in more education?: I choose not to answer this question Please select the resources that you would like help with: None Currently or been in a relationship where the following occur: I choose not to answer THRIVE Score: 0 AUDIT C Alcohol Use Questionnaire (AUDIT-C) 1. How often do you have a drink containing alcohol?: Never 3. How often do you have six or more drinks on one occasion?: Never Total Score: 0 Score Reviewed/Action Taken: Yes FRANCISCO-7 AMB Questionnaire FRANCISCO-7 Date FRANCISCO - 7 assessed: 09/07/24 Feeling nervous, anxious, or on edge: 0 = Not at all Not being able to stop or control worryin = Not at all Worrying too much about different things: 0 = Not at all Trouble relaxin = Not at all Being so restless that it is hard to sit still: 0 = Not at all Becoming easily annoyed or irritable: 0 = Not at all Feeling afraid as if something awful might happen: 0 = Not at all Total FRANCISCO-7 score (0-4 normal; 5-9 mild; 10-14 moderate; 15-21 severe): 0 Source: Developed by Drs. New Alcala, Latoya Us, Michael Sy and colleagues, with an educational segun from [employer]. FRANCISCO-7 Assessment Billing FRANCISCO-7 Assessment Tool: FRANCISCO-7 Assessment 22620 Physical exam (Primary Care) Vital Signs: Last Vital Signs Pulse 65 09/07/24 12:31 BP 138/82 09/07/24 12:31 Pulse Ox 98 09/07/24 12:31 Oxygen Delivery Method Room Air 09/07/24 12:31 BMI result Body Mass Index 29.5 Tobacco/Smoking Status: Tobacco use Status Tobacco use date assessed 09/01/24 09/07/24 12:39 Patient Tobacco Use Status Never used Tobacco 09/07/24 12:39 PHQ-9: PHQ-9 Score PHQ-9: Total score 0 09/07/24 13:43 Depression Screening Interpretation: Negative Thrive Assessment: Date of Thrive Assessment Date Thrive assessed 09/07/24 09/07/24 12:39 Currently or been in a relationship where the following occur: I choose not to answer Coding Level of Care Code Est Pt Level 4 (26474) Complex EM visit Add On G2211 Diagnoses Hypertension, essential I10 Other specified hypothyroidism E03.8 Pre-diabetes R73.03 Hypertensive nephropathy I12.9 Vitamin D deficiency E55.9 Additional Codes FRANCISCO-7 Assessment Billing - FRANCISCO-7 Assessment Tool: FRANCISCO-7 Assessment 51475 ([id number]) PHQ-9 - 90237 - PHQ-9 Billing: Yes ([id number]) Assessment & Plan Assessment & Plan (1) Hypertension, essential: Code(s): I10 - Essential (primary) hypertension Category: Medical (2) Other specified hypothyroidism: Code(s): E03.8 - Other specified hypothyroidism Category: Medical (3) Pre-diabetes: Code(s): R73.03 - Prediabetes Category: Medical (4) Hypertensive nephropathy: Code(s): I12.9 - Hypertensive chronic kidney disease with stage 1 through stage 4 chronic kidney disease, or unspecified chronic kidney disease Category: Medical (5) Vitamin D deficiency: Code(s): E55.9 - Vitamin D deficiency, unspecified Category: Medical Plan - The patient is an 83-year-old male presenting or ongoing care concerns related to blood pressure management and complications, such as renal health monitoring. - noted concern over potential kidney function decline, initiated by high blood pressure. - Presents with elevated fasting blood sugar levels, leading to a diagnosis of prediabetes. Emphasized sugar and carbohydrate intake management discussed to prevent progression to diabetes. - Discusses recent identification of low thyroid function, without prior awareness. Absence of specific symptoms related to hypothyroidism noted. Response to recent thyroid function tests awaited. - Expresses dietary restrictions and challenges, particularly with consuming foods like pasta, as part of managing prediabetes. - Reports decreased vitamin D levels based on recent lab results, contributing to plans for supplementation. - Articulates concerns regarding hearing, though specific symptoms or duration are not stated. Acknowledges need for audiology appointment and evaluation. Medications: - Enalapril hydrochlorothiazide 10-25 mg daily for hypertension - Tramadol for arthritic joint pain, taken one at night, providing some relief - Pain medication regimen ongoing with noted improvements in arthritic symptoms Diagnostic Results: - Labs: Blood pressure is stable; kidney function shows mild issues possibly related to hypertension; fasting sugar levels indicate prediabetes; vitamin D levels are low; thyroid function tests suggest hypothyroidism. Problem List - Essential Hypertension - Prediabetes - Hypothyroidism - Vitamin D Deficiency - Pain related to Arthritic Joints Patient Instructions - Continue taking prescribed blood pressure medication. - Start a vitamin D supplement daily for low vitamin D levels. - Follow dietary recommendations to reduce sugar and carbohydrate intake. - Take prescribed thyroid medication on an empty stomach, without eating for 20 minutes after taking. - Make an appointment for a hearing evaluation. - Continue taking pain medication at bedtime as needed for joint pain relief. - Plan to complete blood testing two days before the next scheduled appointment in November. Orders: Orders Complete Blood Count Auto Diff 3 Months E03.8 - Other specified hypothyroidism, E66.09 - Other obesity due to excess calories, I10 - Essential (primary) hypertension, I12.9 - Hypertensive chronic kidney disease with stage 1 through stage 4 chronic kidney disease, or unspecified chronic kidney disease, R73.03 - Prediabetes Comprehensive Met. Panel 3 Months E03.8 - Other specified hypothyroidism, E66.09 - Other obesity due to excess calories, I10 - Essential (primary) hypertension, I12.9 - Hypertensive chronic kidney disease with stage 1 through stage 4 chronic kidney disease, or unspecified chronic kidney disease, R73.03 - Prediabetes TSH reflex Free T4 3 Months E03.8 - Other specified hypothyroidism, E66.09 - Other obesity due to excess calories, I10 - Essential (primary) hypertension, I12.9 - Hypertensive chronic kidney disease with stage 1 through stage 4 chronic kidney disease, or unspecified chronic kidney disease, R73.03 - Prediabetes Hemoglobin A1c 3 Months E03.8 - Other specified hypothyroidism, E66.09 - Other obesity due to excess calories, I10 - Essential (primary) hypertension, I12.9 - Hypertensive chronic kidney disease with stage 1 through stage 4 chronic kidney disease, or unspecified chronic kidney disease, R73.03 - Prediabetes Medications: New levothyroxine (Levoxyl) 25 mcg PO DAILY 90 tabs 0RF cholecalciferol (vitamin D3) 25 mcg PO DAILY 90 caps 1RF 90 days
--- OUTSIDE RECORDS SUMMARY | 2024-09-07 13:34 | XMS_ITS | Encounter Summary ---
Author Organization [employer] Address [address] [facility] [address] [place] [address] Care Team Providers Care It Programmer Analyst Name Role Phone Meche Dumont MD Primary Care Provider [phone] Encounter Details Date Type Department Care Team (Late st Contact Info) Description 12/23/2023 Orders Only [facility] [address] [place] [address] Provider, MD Anjel Social History Tobacco Use [...] Description 09/09/2024 10:00 AM EDT Office Visit [facility] [address] [place] [address] Elvira Faulkner 09/17/2024 10:00 AM EDT Office Visit [facility] [address] [place] [address] Meche Dumont MD [address] [place] [address] 09/23/2024 9:00 AM EDT Nurse Only [facility] [address] [place] [address] documented as of this encounter Procedures Procedure [...] on filedocumented in this encounter Care Teams It Programmer Analyst Relationship Specialty Start Date End Date Meche Dumont MD [address] [place] [id number] PCP - General Family Medicine 09/16/17 documented as of this encounter
--- OUTSIDE RECORDS SUMMARY | 2024-09-07 13:34 | XMS_ITS | Clinical Summary ---
Author Organization [facility] Address [address] [place] [address] Phone Care Team Providers Care Employment Security Officer Name Role Phone Meche Dumont MD Primary Care Provider [phone] Allergies No known active allergies Medications No [...] patient's age to complete this topic Insurance [facility] MEDICARE Member Subscriber Plan / Payer (Ef fective 2016-Present) Name:Roger Hraper Relation to Subscriber:Self Name:Roger Harper Payer ID:[id number] Group ID:[id number] Type:Not on file Address: [place] [address] [address] [address] Care Teams Employment Security Officer Relationship Specialty Start Date End Date Meche Dumont MD [address] [place] [phone] PCP - General Family Medicine 01/21/24
== END 2024-09-07 13:41 | disposition home or self-care (01) ==
LOC: HO.HMCC 12:24
PROVIDERS: PCP Internal Medicine; Visit Provider Internal Medicine
DX: I10 Essential (primary) hypertension (principal); E03.8 Other specified hypothyroidism; R73.03 Prediabetes; I12.9 Hypertensive chronic kidney disease with stage 1 through stage 4 chronic kidney disease, or unspecified chronic kidney disease; E55.9 Vitamin D deficiency, unspecified

== ENCOUNTER → 2024-09-07 12:23 | Outpatient (BNVA) | payer OTHER, SELFPAY | PROVIDERS: PCP Internal Medicine; Visit Provider Internal Medicine | DX: R73.03 Prediabetes (principal); I12.9 Hypertensive chronic kidney disease with stage 1 through stage 4 chronic kidney disease, or unspecified chronic kidney disease; E55.9 Vitamin D deficiency, unspecified; E03.8 Other specified hypothyroidism | CPT/HCPCS: 96127; 99212 ==

== ENCOUNTER 2024-09-21 15:43 | Outpatient (REF) | payer OTHER, SELFPAY ==
--- OUTSIDE RECORDS SUMMARY | 2024-09-21 16:28 | XMS_ITS | Clinical Summary ---
Author Organization [facility] Address [address] [place] [address] Phone Care Team Providers Care Instructional Design Technologist Name Role Phone Meche Dumont MD Primary Care Provider [phone] Allergies No known active allergies Medications No [...] Patients (1 - 1-dose 75+ series) 2016 Falls Risk Assessment 01/23/2022 Medicare Annual Wellness Visit 01/23/2022 Social Influencers of Health Screening 01/23/2022 COVID-19 Vaccine (3 - 2023-2 5 season) 2023 02/14/2021, 01/24/2021 Hypertension/CHF/CAD Annual BMP Blood Test 01/21/2024 Depression Screening 02/25/2024 Influenza Vaccine (#1) 2024 0, 01/08/2019 Cholesterol [...] patient's age to complete this topic Insurance [facility] [employer] MEDICARE Member Subscriber Plan / Payer (Ef fective 2016-Present) Name:Roger Harper Relation to Subscriber:Self Name:Roger Harper Payer ID:[id number] Group ID:[id number] Type:Not on file Address: [place] [address] [address] [place] [address] Care Teams Instructional Design Technologist Relationship Specialty Start Date End Date Meche Dumont MD [address] [place] [phone] PCP - General Family Medicine 01/21/24
--- OUTSIDE RECORDS SUMMARY | 2024-09-21 16:28 | XMS_ITS | Encounter Summary ---
Author Organization [employer] Address [address] [facility] [address] [place] [address] Care Team Providers Care R D Manager Name Role Phone Meche Dumont MD Primary Care Provider [phone] Encounter Details Date Type Department Care Team (Late st Contact Info) Description 12/23/2023 Orders Only [place] [facility] [address] [place] [address] Provider, MD Anjel Social History Tobacco Use [...] Care Team (Late st Contact Info) Description 09/23/2024 9:00 AM EDT Nurse Only [facility] [address] [place] [address] 10/06/2024 9:30 AM EDT Office Visit [facility] [address] [place] [address] Vincent Kelley, DMD [address] [place] [address] 03/17/2025 1:00 PM EST Office Visit [facility] [address] [place] [address] Elvira Faulkner documented as of this encounter Procedures Procedure [...] on filedocumented in this encounter Care Teams R D Manager Relationship Specialty Start Date End Date Meche Dumont MD [address] [place] [id number] PCP - General Family Medicine 09/16/17 documented as of this encounter
== END 2024-09-21 15:44 | disposition home or self-care (01) ==
LOC: HO.SH 15:43
PROVIDERS: Visit Provider Internal Medicine
DX: H90.3 Sensorineural hearing loss, bilateral (principal)
CPT/HCPCS: 92557

== ENCOUNTER 2024-11-24 08:07 | Outpatient (AMB) | payer OTHER, SELFPAY ==
--- NOTE | 2024-11-24 08:08 | A.OFFPC_ITS ---
Vital Signs 3 11/24/24 08:09 Height 5 ft 7 in Weight 183 lb BMI 28.7 BP 140/80 H Blood Pressure Location Lt brachial Position Sitting Pulse 73 Pulse Source Pulse Oximeter Pulse Oximetry (%) 98 Intake Visit Reasons: 3m f/u Allergies No Known Allergies Allergy (Verified 11/24/24 08:09) Medication List - Last Reconciled 11/24/24 by Juancarlos Shaffer MD cholecalciferol (vitamin D3) 25 mcg PO DAILY 90 days enalapril-hydrochlorothiazide 10-25 mg 1 tab PO QAM levothyroxine (Levoxyl) 25 mcg PO DAILY tramadol 50 mg PO BEDTIME Tobacco use date assessed: 09/01/24 Fall risk assessment: No Falls in past year Last assessed Fall Risk: 11/24/24 Dental Screening Dental Screen Date: 09/07/24 HPI 3m f/u 2 HPI0 Details History The patient is an 84-year-old male presenting with concerns related to the follow-up of existing conditions and new symptoms involving muscular spasms and sensory changes. Right shoulder pain with muscle spasms - Patient reports ongoing muscle spasms at night. - The spasms occur mainly at nighttime, causing discomfort. - The patient has been experiencing thes e symptoms but has not noted any exacerbating factors except the nighttime occurrence of the spasms. - The patient mentioned that tramadol al leviates the pain during the day but not the spasms at night. Bilateral Foot Neuropathy: - The patient reports experiencing heat sensation in both feet, particularly in the afternoon. - Comparable feelings of standing on a h ot stove are described. - The issue has been ongoing for a while . Complaining of shortness a breath which is chronic however patient says that when he climbs stairs now he feels it more He does not have any chest pains and there is no history of smoking EKG done today shows sinus bradycardia with 57 beats per minute Left axis deviation right bundle branch block and T-wave inversion Echocardiogram has been ordered and urgent cardio referral is also placed Patient was notified if he has chest pain he should go to emergency room Medical History: - Hypertension - Prediabetes - Hypertensive nephropathy - Hypothyroidism - Osteoarthritis - Hearing difficulty Medications: - Enalapril hydrochlorothiazide 10-25 mg for hypertension - Levothyroxine 25 mg for hypothyroidism - Tramadol 50 mg at bedtime for arthriti c pain Social History: - Denies exposure to smoking, past or pr esent. - No family history of smoking. Problem List - Essential Hypertension - Prediabetes - Hypertensive Nephropathy - Hypothyroidism - Osteoarthritis - Nighttime Muscle Spasms - Bilateral Foot Neuropathy - shortness a breath - abnormal EKG Diagnostic results - Labs (from August): - Hemoglobin: 13.8 ( slightly low) - Electrolytes: Stable - Creatinine: 1.25 - GFR: 55 - Fasting Sugar: 111 - Liver Enzymes: Stable - LDL: 78 - Vitamin D: Low - TSH: 4.34 - Tests and Diagnostics: - EKG: Normal s inus rhythm, no acute findings Patient Instructions - Repeat the blood tests on non-fasting basis today. - Undergo the tests ordered for neuropat hy diagnosis at [facility]. - Take prescribed muscle relaxer at [facility] to alleviate nighttime spasms. - echocardiogram ordered Cardiology referral placed Follow-up 3 months Review of Systems General: No fever no chills neurological: No headaches no dizziness ear nose throat: No sore throat no hearing difficulty no ear pain cardiovascular: No syncope, no chest pain, no palpitations gastrointestinal: No nausea vomiting or diarrhea endocrine: No polyuria polydipsia no heat intolerance genitourinary: No dysuria skin: No new complaints Physical Exam general: No acute distress HEENT: No acute findings neck: Supple respiratory system: Able to talk in full sentences, no audible wheeze, no stridor cardiovascular: S1-S2 RRR, gastrointestinal: No pain extremities: No swelling DRIVER'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 1. Little interest or pleasure in doing things: not at all 2. Feeling down, depressed, or hopeless: not at all 3. Trouble falling or staying asleep, or sleeping too much: not at all 4. Feeling tired or having little energy: not at all 5. Poor appetite or overeating: not at all 6. Feeling bad about yourself - or that you are a failure or have let yourself or your family down: not at all 7. Trouble concentrating on things, such as reading the newspaper or watching television: not at all 8. Moving or speaking so slowly that other people could have noticed. Or the opposite - being so fidgety or restless that you have been moving around a lot more than usual: not at all 9. Thoughts that you would be better off or of hurting yourself in some way: not at all Total score: 0 Depression Screening Interpretation: Negative Depression Screening Done: Yes 63196 - PHQ-9 Billing: Yes Source: Developed by Drs. New Alcala, Latoya Us, Michael Sy and colleagues, with an educational segun from [employer] Thrive Questionnaire Date Thrive assessed: 09/07/24 AUDIT C Alcohol Use Questionnaire (AUDIT-C) 1. How often do you have a drink containing alcohol?: Never 3. How often do you have six or more drinks on one occasion?: Never Total Score: 0 Score Reviewed/Action Taken: Yes FRANCISCO-7 AMB Questionnaire FRANCISCO-7 Date FRANCISCO - 7 assessed: 09/07/24 Feeling nervous, anxious, or on edge: 0 = Not at all Not being able to stop or control worryin = Not at all Worrying too much about different things: 0 = Not at all Trouble relaxin = Not at all Being so restless that it is hard to sit still: 0 = Not at all Becoming easily annoyed or irritable: 0 = Not at all Feeling afraid as if something awful might happen: 0 = Not at all Total FRANCISCO-7 score (0-4 normal; 5-9 mild; 10-14 moderate; 15-21 severe): 0 Source: Developed by Drs. New Alcala, Michael Chapman and colleagues, with an educational segun from [employer] FRANCISCO-7 Assessment Billing FRANCISCO-7 Assessment Tool: FRANCISCO-7 Assessment 66878 Physical exam (Primary Care) Vital Signs: Last Vital Signs Pulse 73 11/24/24 08:09 BP 140/80 H 11/24/24 08:09 Pulse Ox 98 11/24/24 08:09 BMI result Body Mass Index 28.7 Tobacco/Smoking Status: Tobacco use Status Tobacco use date assessed 09/01/24 11/24/24 08:10 Patient Tobacco Use Status Never used Tobacco 11/24/24 08:10 PHQ-9: PHQ-9 Score PHQ-9: Total score 0 11/24/24 08:35 Depression Screening Interpretation: Negative Thrive Assessment: Date of Thrive Assessment Date Thrive assessed 09/07/24 11/24/24 08:10 Cardio Other: Office Procedures EKG 37562-Mjdyvtpjrduhjjnrx, Complete Coding Level of Care Code Est Pt Level 5 (04510) Diagnoses Shortness of breath R06.02 Abnormal EKG R94.31 Bundle branch block I45.4 Sinus bradycardia R00.1 T wave inversion in EKG R94.31 Paresthesia of both feet R20.2 CPT Codes EKG - CPT: 87273-Sngowbriltoluiuid, Complete ([id number]) Additional Codes PHQ-9 - 35559 - PHQ-9 Billing: Yes ([id number]) FRANCISCO-7 Assessment Billing - FRANCISCO-7 Assessment Tool: FRANCISCO-7 Assessment 48721 ([id number]) Time Spent (min) 40 Comment [id number]-[id number] with patient and discussing EKG report/documentation/coordination of car Assessment & Plan Assessment & Plan (1) Shortness of breath: Code(s): R06.02 - Shortness of breath Category: Medical (2) Abnormal EKG: Code(s): R94.31 - Abnormal electrocardiogram [ECG] [EKG] Category: Medical (3) Bundle branch block: Code(s): I45.4 - Nonspecific intraventricular block Category: Medical (4) Sinus bradycardia: Code(s): R00.1 - Bradycardia, unspecified Category: Medical (5) T wave inversion in EKG: Code(s): R94.31 - Abnormal electrocardiogram [ECG] [EKG] Category: Medical (6) Paresthesia of both feet: Code(s): R20.2 - Paresthesia of skin Category: Medical Plan History The patient is an 84-year-old male presenting with concerns related to the follow-up of existing conditions and new symptoms involving muscular spasms and sensory changes. Right shoulder pain with muscle spasms - Patient reports ongoing muscle spasms at night. - The spasms occur mainly at nighttime, causing discomfort. - The patient has been experiencing these symptoms but has not noted any exacerbating factors except the nighttime occurrence of the spasms. - The patient mentioned that tramadol alleviates the pain during the day but not the spasms at night. Bilateral Foot Neuropathy: - The patient reports experiencing heat sensation in both feet, particularly in the afternoon. - Comparable feelings of standing on a hot stove are described. - The issue has been ongoing for a while . Complaining of shortness a breath which is chronic however patient says that when he climbs stairs now he feels it more He does not have any chest pains and there is no history of smoking EKG done today shows sinus bradycardia with 57 beats per minute Left axis deviation right bundle branch block and T-wave inversion Echocardiogram has been ordered and urgent cardio referral is also placed Patient was notified if he has chest pain he should go to emergency room Medical History: - Hypertension - Prediabetes - Hypertensive nephropathy - Hypothyroidism - Osteoarthritis - Hearing difficulty Medications: - Enalapril hydrochlorothiazide 10-25 mg for hypertension - Levothyroxine 25 mg for hypothyroidism - Tramadol 50 mg at bedtime for arthritic pain Social History: - Denies exposure to smoking, past or present. - No family history of smoking. Problem List - Essential Hypertension - Prediabetes - Hypertensive Nephropathy - Hypothyroidism - Osteoarthritis - Nighttime Muscle Spasms - Bilateral Foot Neuropathy - shortness a breath - abnormal EKG Diagnostic results - Labs (from August): - Hemoglobin: 13.8 (slightly low) - Electrolytes: Stable - Creatinine: 1.25 - GFR: 55 - Fasting Sugar: 111 - Liver Enzymes: Stable - LDL: 78 - Vitamin D: Low - TSH: 4.34 - Tests and Diagnostics: - EKG: Normal sinus rhythm, no acute findings Patient Instructions - Repeat the blood tests on non-fasting basis today. - Undergo the tests ordered for neuropathy diagnosis at [facility]. - Take prescribed muscle relaxer at night to alleviate nighttime spasms. - echocardiogram ordered Cardiology referral placed Follow-up 3 months Orders: Orders 2 NE electromyogram (EMG) Today R20.2 - Paresthesia of skin NE nerve conduction velocity Today R20.2 - Paresthesia of skin CA echo transthoracic complete Today I44.7 - Left bundle-branch block, unspecified, R00.1 - Bradycardia, unspecified, R06.02 - Shortness of breath, R94.31 - Abnormal electrocardiogram [ECG] [EKG] Referrals 2 Cardiology Referral I44.7 - Left bundle-branch block, unspecified, R00.1 - Bradycardia, unspecified, R06.02 - Shortness of breath, R94.31 - Abnormal electrocardiogram [ECG] [EKG]
[2024-11-24 08:09] VITALS: BP 140/80; PULSE 73; O2SAT 98; BMI 28.7
--- OUTSIDE RECORDS SUMMARY | 2024-11-24 08:20 | XMS_ITS | Encounter Summary ---
Author Organization [employer] Address [address] [facility] [address] [place] [address] Care Team Providers Care Metallurgical Laboratory Assistant Name Role Phone Meche Dumont MD Primary Care Provider [phone] Andrew Ledezma CNP Primary Care Provider [phone] Encounter Details Date Type Department Care Team (Latest Contact Info) Description 01/25/2021 Abstract [facility] CONVERSIONS Dental, Provider, DDS Social History Tobacco Use Types Packs/Day Years [...] Care Team (Late st Contact Info) Description 12/01/2024 11:00 AM EDT Office Visit [facility] [address] [place] [address] Vincent Kelley DMD [address] [place] [address] 03/17/2025 1:00 PM EST Office Visit [facility] [address] [place] [address] Elvira Faulkner documented as of this encounter Visit Diagnoses Not on filedocumented in this encounter Care Teams Metallurgical Laboratory Assistant Relationship Specialty Start Date End Date Meche Dumont MD [address] [place] [id number] PCP - General Family Medicine 09/16/17 09/30/24 Andrew Ledezma CNP [address] [place] [id number] PCP - General Family Medicine 10/01/24 documented as of this encounter
--- OUTSIDE RECORDS SUMMARY | 2024-11-24 08:20 | XMS_ITS | Clinical Summary ---
Author Organization [facility] Address [address] [place] [address] Phone Care Team Providers Care Psychology Instructor Name Role Phone Meche Dumont MD Primary Care Provider [phone] Allergies No known active allergies Medications No [...] 01/23/2022 Social Influencers of Health Screening 01/23/2022 Hypertension/CHF/CAD Annual BMP Blood Test 01/21/2024 Depression Screening 02/25/2024 COVID-19 Vaccine (3 - 2024-2 6 season) 2024 02/14/2021, 01/24/2021 Influenza Vaccine (#1) 2024 0, 01/08/2019 Cholesterol [...] patient's age to complete this topic Insurance [facility] MEDIC[facility] Member Subscriber Plan / Payer (Ef fective 2016-Present) Name:Roger Harper Relation to Subscriber:Self Name:Roger Harper Payer ID:[id number] Group ID:[id number] Type:Not on file Address: [facility] [address] [address] Care Teams Psychology Instructor Relationship Specialty Start Date End Date Meche Dumont MD [address] [place] [id number] PCP - General Family Medicine 01/21/24
--- OUTSIDE RECORDS SUMMARY | 2024-11-24 08:20 | XMS_ITS | Encounter Summary ---
Author Organization [email or web address] Address [address] [facility] [address] [place] [address] Care Team Providers Care Count Team Clerk Name Role Phone Meche Dumont MD Primary Care Provider Andrew Ledezma CNP Primary Care Provider [phone] Encounter Details Date Type Department Care Team (Late st Contact Info) Description 04/09/2022 Orders Only [facility] [address] [place] [address] Magda Gilbert LPN Social History Tobacco Use Types Packs/Day Years [...] Description 12/01/2024 11:00 AM EDT Office Visit [facility] [address] [place] [address] Vincent Kelley, DEB [address] [place] [address] 03/17/2025 1:00 PM EST Office Visit [facility] [address] [place] [address] Elvira Faulkner documented as of this encounter Visit Diagnoses Not on filedocumented in this encounter Care Teams Count Team Clerk Relationship Specialty Start Date End Date Meche Dumont MD [address] [place] [address] PCP - General Family Medicine 09/16/17 09/30/24 Andrew Ledezma CNP [address] [place] [address] PCP - General Family Medicine 10/01/24 documented as of this encounter
--- OUTSIDE RECORDS SUMMARY | 2024-11-24 08:20 | XMS_ITS | Encounter Summary ---
Author Organization [facility] [employer] Address [address] [facility] [address] [place] [address] Care Team Providers Care Skein Bander Name Role Phone Meche Dumont MD Primary Care Provider [phone] Andrew Ledezma CNP Primary Care Provider [phone] Encounter Details Date Type Department Care Team ([facility] st Contact Info) Description 08/11/2024 Orders Only [facility] [address] [place], [place] [id number] ProviderAnjel MD Social History Tobacco Use Types Packs/Day Years Used Date Smoking Tobacco: Never Smokeless Tobacco: Never Alcohol Use Standard Drinks/Week Comments Never 0 (1 standard drink = 0.6 oz pur e alcohol) Housing Stability Answer Date Recorded What is your housing situation today? I have betty parada 01/10/[address] you li [...] Description 12/01/2024 11:00 AM EDT Office Visit [facility] [address] [place] [address] Vincent Kelley, DMD [address] [place] [address] 03/17/2025 1:00 PM EST Office Visit [facility] [address] [place] [address] Elvira Faulkner documented as of this encounter Procedures Procedure Name Priority Date/Time Associated Diagnosis Comments MR SHOULDER W CONTRAST RIGHT Routine 06/10/2024 11:45 AM EDT documented in this encounter Results * MR Shoulder w/ Contrast Right (06/10/2024 11:45 AM EDT) Anatomical Region Laterality Modality Upper Extremities, Shoulder Right Magn etic Resonance us Historical Provider MD ALMANZA MRI PROCEDURES Final Result documented in this encounter Visit Diagnoses Not on filedocumented in this encounter Care Teams Skein Bander Relationship Specialty Start Date End Date Meche Dumont MD [address] [place] [address] PCP - General Family Medicine 09/16/17 09/30/24 Andrew Ledezma CNP [address] [place] [address] PCP - General Family Medicine 10/01/24 documented as of this encounter
--- OUTSIDE RECORDS SUMMARY | 2024-11-24 08:20 | XMS_ITS | Clinical Summary ---
Author Organization [employer] Address [address] [place] [address] Care Team Providers Care Area Field Worker Name Role Phone Andrew Ledezma CNP Primary Care Provider [phone] Allergies No known active allergies Medications terbinafine (LamISIL) 1 % cream apply by topical route 2 times every day to the affected and surrounding areas of skin 2 Active cholecalciferol (Vitamin D-3) 10 MCG (400 UNIT) tablet take orally once daily 7 Active levothyroxine (Tirosint) 50 MCG capsule Take 1 capsule by mouth at bed time. 2 Active olmesartan (Benicar) 20 MG tabletIndication s:Primary hypertension Take 1 tablet (20 mg) by mouth in the morning. For hypertension 90 tablet 1 3 Active Additional Information Patient not taking.Reported on 11/18/2024 hydroCHLOROthiaz isiah (HYDRODiuril) 50 MG tablet TAKE ONE TABLET DAILY 30 tablet 5 3 Active azelastine (Astelin) 0.1 % nasal spray Administer 1 spray into each nostril 2 times daily. Use in each nostril as directed 30 mL 12 3 Active Additional Information Patient not taking.Reported on 11/18/2024 levothyroxine (Synthroid, Levoxyl) 50 MCG tablet TAKE ONE TABLET BY MOUTH EVERY DAY 30 tablet 4 4 Active simvastatin (Zocor) 10 MG tablet TAKE ONE TABLET BY MOUTH EVERY DAY IN THE EVENING 30 tablet 4 4 Active cetirizine (ZyrTEC) 10 MG tabletIndication s:Allergy, sequela TAKE ONE TABLET BY MOUTH DAILY 30 tablet 4 4 Active meloxicam (Mobic) 7.5 MG tabletIndication s:Arthritis TAKE ONE TABLET BY MOUTH EVERY MORNING 30 tablet 11 4 Active omeprazole OTC (PriLOSEC OTC) 20 MG EC tablet Take 1 tablet (20 mg) by mouth before breakfast. 30 tablet 11 4 Active Additional Information Patient not taking.Reported on 11/18/2024 meclizine (Antivert) 25 MG tablet 1 tab po BID 60 tablet 3 4 Active Diclofenac Sodium (Voltaren) 1 % gel Use topical BID 100 g 3 4 Active benzonatate (Tessalon) 100 MG capsule TAKE 1 CAPSULE BY MOUTH THREE TIMES DAILY FOR 5 DAYS NEEDED FOR COUGH 4 Active fluticasone (Flonase) 50 MCG/ACT nasal spray SHAKE LIQUID AND USE 1 SPRAY IN EACH NOSTRIL EVERY 12 HOURS 4 Active traMADol (Ultram) 50 MG tablet 4 Active Diclofenac Sodium (Voltaren) 1 % gel Use topical BID 100 g 3 5 Active acetaminophen (Tylenol) 500 MG tablet Take 1 tablet (500 mg) by mouth every 6 (six) hours if needed for mild pain for up to 20 doses. 20 tablet 5 Active Additional Information Patient not taking.Reported on 11/18/2024 chlorhexidine (Peridex) 0.12 % solution Swish 15 mL morning and night for 1 minute. Spit, do not swallow. Do not eat or drink for 30 minutes following use. 473 mL 5 Active ibuprofen 600 MG tablet Take 1 tablet (600 mg) by mouth every 6 (six) hours if needed for mild pain for up to 20 doses. 20 tablet 5 Active ibuprofen 600 MG tablet Take 1 tablet (600 mg) by mouth every 6 (six) hours if needed for mild pain for up to 20 doses. 20 tablet 5 Active Additional Information Patient not taking.Reported on 11/18/2024 acetaminophen (Tylenol) 500 MG tablet Take 1 tablet (500 mg) by mouth every 6 (six) hours if needed for mild pain for up to 20 doses. 20 tablet 5 Active Additional Information Patient not taking.Reported on 11/18/2024 acetaminophen (Tylenol) 500 MG tablet Take 1 tablet (500 mg) by mouth every 6 (six) hours if needed for mild pain for up to 10 doses. 10 tablet 5 Active Additional Information Patient not taking.Reported on 11/18/2024 ibuprofen 600 MG tablet Take 1 tablet (600 mg) by mouth every 6 (six) hours if needed for mild pain for up to 10 doses. 10 tablet 5 Active Additional Information Patient not taking.Reported on 11/18/2024 ibuprofen 600 MG tablet Take 1 tablet (600 mg) by mouth every 6 (six) hours if needed for mild pain for up to 10 doses. 10 tablet 5 Active Additional Information Patient not taking.Reported on 11/18/2024 acetaminophen (Tylenol) 500 MG tablet Take 1 tablet (500 mg) by mouth every 6 (six) hours if needed for mild pain for up to 10 doses. 10 tablet 5 Active amitriptyline (Elavil) 25 MG tablet TAKE ONE TABLET BY MOUTH AT BEDTIME 30 tablet 1 5 Active azithromycin (Zithromax) 250 MG tabletIndication s:Acute cough 500 mg day 1 and 250 mg day 2-5 6 tablet 5 Active albuterol (ProAir HFA) 108 (90 Base) MCG/ACT inhalerIndicatio ns:Acute cough Inhale 2 puffs every 4 (four) hours. 18 g 5 Active omeprazole (PriLOSEC) [address] capsule TAKE ONE CAPSULE EVERY MORNING BEFORE BREAKFAST 5 Active enalapril-hydroC HLOROthiazide (Vasoretic) 10-25 MG tablet Take 1 tablet by mouth in the morning. 5 Active Active Problems Problem Noted Date Diagnosed Date Right bundle branch block 04/30/2022 Primary hypertension 04/30/2022 Assessment & Plan (12/15/2022 12:23 PM EDT): BP goal < 140/90 mmHg, initial and repeat elevated in office. Pt asymptomatic Cont hydrochlorothiazide 50mg DC Lisinopril 5mg daily as pt had not been taking Start olmesartan 20mg daily. Reviewed med use and SE. Will complete BMP as ordered previously through PCP. Lab slips provided today ED/urgent care precautions reviewed Arthritis 04/30/2022 Stress incontinence of urine 04/30/2022 Assessment & Plan (12/15/2022 12:27 PM EDT): DME request for refill of gloves and pull ups 12/15/22 Resolved Problems Problem Noted Date Diagnosed Date Resolved Date Acquired hypothyroidism 04/30/202208/24 Assessment & Plan (12/15/2022 12:21 PM EDT): Levothyroxine 50mcg on pt med list, although pt and report he has not been taking Labs including TSH pending from PCP Encouraged to check lab work, determine appropriate dose/adjustment from there Encounters Date Type Department Care Team Description 11/18/2024 1:00 PM EDT Office Visit [facility] [address] [place] [address] Vincent Kelley DMD Edentulism (Primary Dx); Partial edentulism, class I 11/09/2024 2:00 PM EDT Office Visit [facility] [address] [place] [address] Vincent Kelley DMD Edentulism (Primary Dx); Partial edentulism, class I 10/29/2024 3:00 PM EDT Office Visit [facility] [address] [place] [address] Vincent Kelley DMD Partial edentulism, class I (Primary Dx); Edentulism 10/21/2024 10:00 AM EDT Office Visit [facility] [address] [place] [address] Vincent Kelley DMD Partial edentulism, class I (Primary Dx); Edentulism 10/06/2024 9:30 AM EDT Office Visit [facility] [address] [place] [address] Vincent Kelley DMD Abfraction (Primary Dx); Dental caries 09/20/[address] [address] Meche Dumont MD Med Refill 09/10/2024 1:00 PM EDT Office Visit [facility] [address] [place] [address] Kaushik Elvira Dental calculus (Primary Dx); Edentulism; Partial edentulism, class I; Abfraction 09/10/2024 Patient Outreach [facility] [address] [place] [address] Meche Dumont MD Pre-visit Planning (Pre visit planning unable to complete.) 08/30/2024 2:00 PM EDT Office Visit [facility] [address] [place] [address] Nyla Biswas from Last 3 Months Immunizations Immunization Administration Dates Next Due Tdap 11/24/2019 Zoster, Recombinant 07/14/2024 Social History Tobacco Use Types Packs/Day Years Used Date Smoking Tobacco: Never Smokeless Tobacco: Never Tobacco Cessation:Counseling Given: Not Answered Alcohol Use Standard Drinks/Week Comments Never 0 (1 standard drink = 0.6 oz pur e alcohol) Housing Stability Answer Date Recorded What is your housing situation today? I have bettygianna parada 01/10/[address] you [...] Orientation Straight 12/24/2021 10 :32 AM EDT Last Filed Vital Signs Vital Sign Reading Time Taken Comments Blood Pressure 132/64 10/06/2024 9:39 AM EDT Pulse 72 08/19/2024 11:33 AM EDT Temperature 36.4 C (97.6 F) 08/19/2024 11:33 AM EDT Respiratory Rate 20 08/19/2024 11:33 AM EDT Oxygen Saturation 99% 08/19/2024 11:33 AM EDT Inhaled Oxygen Concentration - - Weight 86.2 kg (190 lb) 05/12/2024 10:50 AM EDT Height 162.6 cm (5' 4 ) 05/12/2024 10:50 AM EDT Body Mass Index 32.61 05/12/2024 10:50 AM EDT Plan of Treatment Upcoming Encounters Date Type Department Care Team (Late st Contact Info) Description 12/01/2024 11:00 AM EDT Office Visit [facility] [address] [place] [address] Vincent Kelley, DMD [address] [place] [address] 03/17/2025 1:00 PM EST Office Visit [facility] [address] [place] [address] Elvira Faulkner Health Maintenance Due Date Last Done Comments Depression Screening 1941 Alcohol/Substance Use Screening 1953 Pneumococcal Vaccine: 50+ Years (1 of 1 - PCV) 10/13/1991 RSV Patients and Patients Aged 60 years or older (1 - 1-dose 75+ series) 2016 SDOH Screening 01/11/2024 01/10/2023 Zoster Vaccines (2 of 2) 09/08/2024 07/14/2024 COVID-19 Vaccine (3 - 2024- season) 2024 02/14/2021, 01/24/2021 Influenza Vaccine (#1) 2024 , 01/08/2019, 12/04/2017 Dental Oral Exam 03/14/2025 09/10/2024, , 08/19/2023, Additional history exists Dental Prophylaxis 03/14/2025 09/10/2024, 1 04/21/2023, 08/19/2023, Additional history exists Dental X-Ray: Bitewings 09/11/2025 09/11/19 25, 08/19/2023, 01/25/2021 Tobacco Screening 11/18/2025 11/18/2024 Dental X-Ray: Full Mouth 06/09/2027 025, 01/25/2021, 12/03/2017 Lipid Panel 12/14/2027 12/13/2022, 08/24, 09/10/2019 DTaP/Tdap/Td Vaccines (2 - Td or Tdap) 11/23/2029 [...] patient's age to complete this topic Meningococcal Vaccine Aged Out No cassandra marielena eligible based on patient's age to complete this topic RSV under 20 months Aged Out No longe r eligible based on patient's age to complete this topic Rotavirus Vaccines Aged Out No longer eligible based on patient's age to complete this topic Procedures Procedure Name Priority Date/Time Associated Diagnosis Comments CASE PRESENTATION, DETAILED AND EXTENSIVE TREATMENT PLANNING Routine 11/18/2024 1:00 PM EDT Edentulism Partial edentulism, class I Max COMPLETE DENTURE - MAXILLARY Routine 11/18/2024 1:00 PM EDT Edentulism 18,19,30,31 MANDIBULAR PARTIAL DENTURE - RESIN BASE (INCLUDING, RETENTIVE/CLASPING MATERIALS, RESTS, AND TEETH) Routine 11/18/2024 1:00 PM EDT Partial edentulism, class I CASE PRESENTATION, DETAILED AND EXTENSIVE TREATMENT PLANNING Routine 11/09/2024 2:00 PM EDT Edentulism Partial edentulism, class I WAX TRY IN Routine 11/09/2024 2:00 PM EDT Edentulism Partial edentulism, class I CASE PRESENTATION, DETAILED AND EXTENSIVE TREATMENT PLANNING Routine 10/29/2024 3:00 PM EDT Partial edentulism, class I Edentulism BITE REGISTRATION Routine 10/29/2024 3:0 0 PM EDT Partial edentulism, class I Edentulism CASE PRESENTATION, DETAILED AND EXTENSIVE TREATMENT PLANNING Routine 10/21/2024 10:00 AM EDT Partial edentulism, class I Edentulism DENTURE IMPRESSION Routine 10/21/2024 10 :00 AM EDT Partial edentulism, class I Edentulism CASE PRESENTATION, DETAILED AND EXTENSIVE TREATMENT PLANNING Routine 10/06/2024 9:30 AM EDT Abfraction Dental caries 28 B(V) RESIN-BASED COMPOSITE - 1 SURF, POSTERIOR Routine 10/06/2024 9:30 AM EDT Abfraction Dental caries 29 B(V) RESIN-BASED COMPOSITE - 1 SURF, POSTERIOR Routine 10/06/2024 9:30 AM EDT Abfraction Dental caries 20 B(V) RESIN-BASED COMPOSITE - 1 SURF, POSTERIOR Routine 10/06/2024 9:30 AM EDT Abfraction Dental caries PERIODIC ORAL EVALUATION - ESTABLISHED PATIENT Routine 09/10/2024 1:00 PM EDT Edentulism Partial edentulism, class I Abfraction TOPICAL APPLICATION OF FLUORIDE VARNISH Routine 09/10/2024 1:00 PM EDT Edentulism Partial edentulism, class I Abfraction INTRAORAL - PERIAPICAL FIRST RADIOGRAPHIC IMAGE Routine 09/10/2024 1:00 PM EDT Edentulism Partial edentulism, class I Abfraction BITEWINGS - 4 RADIOGRAPHIC IMAGES Routine 09/10/2024 1:00 PM EDT Edentulism Partial edentulism, class I Abfraction ORAL HYGIENE INSTRUCTIONS Routine 09/10/2024 1:00 PM EDT Edentulism Partial edentulism, class I Abfraction CASE PRESENTATION, DETAILED AND EXTENSIVE TREATMENT PLANNING Routine 09/10/2024 1:00 PM EDT Edentulism Partial edentulism, class I Abfraction PROPHYLAXIS - ADULT Routine 09/10/2024 1 :00 PM EDT Edentulism Partial edentulism, class I Abfraction CASE PRESENTATION, DETAILED AND EXTENSIVE TREATMENT PLANNING Routine 08/30/2024 2:00 PM EDT DENTURE IMPRESSION Routine 08/30/2024 2: 00 PM EDT PANORAMIC RADIOGRAPHIC IMAGE Routine 06/07/2024 11:30 AM EDT LIPID PANEL, STANDARD Routine 12/13/2022 12:47 PM EDT Primary hypertension from Last 3 Months or Most Recently Relevant to Health Maintenance Results * (ABNORMAL) Lipid Panel, Standard (12/13/2022 12:47 PM EDT) Triglycerides 186(H) <150 mg/dL [facility] Comment:Desirable Triglyceri de: less than 150 mg/dLBorderline High Triglyceride 150-199 mg/dLHigh Triglyceride: 200-499 mg/dLVery High Triglyceride: greater than or equal to 5OO mg/dL Cholesterol 176 <200 mg/dL [facility] Comment:Desirable Cholestero l: less than 200 mg/dLBorderline High Cholesterol: 200-239 mg/dLHigh Cholesterol: greater than 239 mg/dL LDL Cholesterol Calculated 102(H) <100 mg/dL [facility] Comment:Desirable LDL: less than 100 mg/dLNear Optimal/Above Optimal LDL: 110- 129 mg/dLBorderline High LDL: 130-159 mg/dLHigh LDL: 160-189 mg/dLVery High LDL: greater than or equal to 190 mg/dL HDL Cholesterol 37(L) >40 mg/dL [facility] Comment:Desirable HDL: great er than 40 mg/dL Note: This HDL assay may give artificially low results in patients with liver disease. Blood Venous blood specimen / Unknown 12/13/2022 12:47 PM EDT 12/13/2022 2:24 PM EDT us Meche Dumont MD LAB BLOOD ORDERABLES Final Resul t [facility] [address] [place] [address] [phone] from Last 3 Months or Most Recently Relevant to Health Maintenance Insurance [facility] [employer] (HMO D-SNP) [place] [address] Care Teams Area Field Worker Relationship Specialty Start Date End Date Andrew Ledezma CNP PCP - General Family Medicine 10/01/24
--- OUTSIDE RECORDS SUMMARY | 2024-11-24 08:20 | XMS_ITS | Encounter Summary ---
Author Organization [employer] Address [address] [facility] [address] [place] [address] Care Team Providers Care Circulation Man Name Role Phone Meche Dumont MD Primary Care Provider [phone] Andrew Ledezma CNP Primary Care Provider [phone] Encounter Details Date Type Department Care Team (Late st Contact Info) Description 12/23/2023 Orders Only [place] [facility] [address] [place], [place] [phone] ProviderAnjel MD Social History Tobacco Use Types [...] Description 12/01/2024 11:00 AM EDT Office Visit [facility] [address] [place] [address] Vincent Kelley, DMD [address] [place] [address] 03/17/2025 1:00 PM EST Office Visit [facility] [address] [place], [place] [phone] Elvira Faulkner documented as of this encounter Procedures Procedure Name Priority Date/Time Associated Diagnosis Comments XR CHEST 2 VIEWS Routine 12/22/2023 1:47 PM EDT documented in this encounter Results * XR Chest 2 Views (12/22/2023 1:47 PM EDT) Anatomical Region Laterality Modality Chest Radiographic Kenzie ging us Historical Provider IMG XR PROCEDURES Final R esult documented in this encounter Visit Diagnoses Not on filedocumented in this encounter Care Teams Circulation Man Relationship Specialty Start Date End Date Meche Dumont MD [address] [place] [address] PCP - General Family Medicine 09/16/17 09/30/24 Andrew Ledezma CNP [address] [place] [address] PCP - General Family Medicine 10/01/24 documented as of this encounter
== END 2024-11-24 08:39 | disposition home or self-care (01) ==
LOC: HO.HMCC 08:07
PROVIDERS: PCP Registered Nurse; Visit Provider Internal Medicine
DX: R06.02 Shortness of breath (principal); R94.31 Abnormal electrocardiogram [ECG] [EKG]; I45.4 Nonspecific intraventricular block; R00.1 Bradycardia, unspecified; R20.2 Paresthesia of skin

== ENCOUNTER 2024-11-24 08:07 | Outpatient (REF) | payer OTHER, SELFPAY ==
[2024-11-24 10:03] LABS: MANUAL DIFF FLAG NO
[2024-11-24 10:12] LABS: Hematocrit 45.8 % (42.0-52.0); Hemoglobin 15.2 g/dl (14.0-18.0); Imm Gran Abs Auto 0.02 X10*3/uL (0.00-0.03); Imm Gran Pct Auto 0.4 % (0.0-0.4); Lymphocytes Absolute Auto 1.3 X10*3/uL (1.2-4.9); Mean Corpuscular HGB Conc 33.2 g/dl (31.0-36.0); Mean Corpuscular Hemoglobin 26.4 pg (27.0-33.0); Mean Corpuscular Volume 79.7 fL (80.0-98.0); NRBC Abs Auto 0.000 X10*3/uL (0.0-0.012); NRBC Pct Auto 0.0 /100WBC (0.0-0.2); Platelet Count 238 X10*3/uL (160-400); Red Blood Count 5.75 X10*6/uL (4.60-5.80); White Blood Count 5.2 X10*3/uL (4.8-10.8)
[2024-11-24 10:22] LABS: Hemoglobin A1C 152.4985 umol/L
[2024-11-24 10:56] LABS: Alanine Aminotransferase 14 U/L (0-40); Albumin Level 3.9 g/dL (3.5-5.0); Alkaline Phosphatase 139 U/L (39-117); Anion Gap 10 (12-20); Aspartate Amino Transferase 16 U/L (5-37); Blood Urea Nitrogen 20 mg/dL (9-16); Calcium 8.9 mg/dL (8.4-10.2); Carbon Dioxide 27 mmol/L (22-29); Chloride 110 mmol/L (96-108); Estimated Glomerular Filt Rate > 60; Potassium 4.2 mmol/L (3.3-5.1); Sodium 143 mmol/L (135-145); Total Protein 6.3 g/dL (6.5-8.0)
== END 2024-11-24 08:08 | disposition home or self-care (01) ==
LOC: HO.HMGCLDS 08:07
PROVIDERS: PCP Registered Nurse; Visit Provider Internal Medicine
DX: I12.9 Hypertensive chronic kidney disease with stage 1 through stage 4 chronic kidney disease, or unspecified chronic kidney disease (principal); N18.9 Chronic kidney disease, unspecified; R73.03 Prediabetes; E03.8 Other specified hypothyroidism; E66.09 Other obesity due to excess calories; Z68.28 Body mass index [BMI] 28.0-28.9, adult; R06.02 Shortness of breath; R94.31 Abnormal electrocardiogram [ECG] [EKG]; I45.4 Nonspecific intraventricular block; R00.1 Bradycardia, unspecified; R20.2 Paresthesia of skin; Z71.3 Dietary counseling and surveillance
CPT/HCPCS: 36415; 80053; 83036; 84443; 85025; 93005; 96127; 99212

== ENCOUNTER 2024-12-13 14:41 | Outpatient (AMB) | payer OTHER, SELFPAY ==
[2024-12-13 15:03] VITALS: BP 126/74; PULSE 66; BMI 30.4
--- NOTE | 2024-12-13 15:03 | A.OFFVIS_ITS ---
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/ lbbb/abn ekg/sob Intake Note: New patient dx abn ekg c/o sob and fatigue on excretion Cupola Liner Helper Required: Yes Cupola Liner Helper Services: Cupola Liner Helper Offered & Declined Livestock Yard Attendant: Livestock Yard Attendant Present Accompanied by: Spouse Allergies No Known Allergies Allergy (Verified 11/24/24 08:09) Medication List - Last Reconciled 12/13/24 by Alton Camacho MD cholecalciferol (vitamin D3) 25 mcg PO DAILY 90 days enalapril-hydrochlorothiazide 10-25 mg 1 tab PO QAM levothyroxine (Levoxyl) 25 mcg PO DAILY tramadol 50 mg PO BEDTIME HPI Comments Details: Roger is here for consultation regarding an abnormal EKG. Recent EKG performed through her primary care physician's office had revealed right bundle-branch block and concern for T inversions and hence he is referred. Patient himself does not have any known cardiac issues. Denies any history of coronary disease myocardial infarction or cardiomyopathy or any other cardiac concerns. Within limits of his activity, he denies any exertional angina. He does get short of breath with activity which she describes as ' suffocation'. On meds for hypertension, hypothyroidism. [facility] Medical History Cough Surgical History S/P appendectomy Family History Unknown No problems noted. Social History Patient Tobacco Use Status: Never used Tobacco Cognitive needs: No Hearing needs: No Vision needs: No Review of Systems Const Denies chills, Denies daytime sleepiness, Denies fatigue, Denies fever(s), Denies frequent falls, Denies poor appetite, Denies snoring, Denies stops remberto thing during sleep, Denies weakness, Denies weight gain and Denies weight loss Eyes Denies loss of vision ENT Denies dizziness and Denies hearing loss Card Denies chest pain, Denies claudication, Denies leg edema, Denies lightheadedness, Denies palpitations, Denies dyspnea, Denies dyspnea on exertion and Denies orthopnea Resp Denies cough, Denies excessive phlegm production, Denies dyspnea, Denies dyspnea on exertion, Denies snoring and Denies wheezing GI Denies abdominal pain, Denies hematochezia, Denies change in bowel habits, Denies nausea and Denies vomiting Denies dysuria and Denies urinary frequency Musc Denies arthralgias, Denies muscle weakness and Denies numbness Skin/Breast Denies nail changes and Denies rash Neuro Denies Abnormal speech present, Denies dizziness, Denies frequent falls, Denies loss of vision, Denies memory loss, Denies numbness and Denies weakness Psych Denies depression and Denies memory loss Endo Denies fatigue and Denies palpitations Mike/Lymph Reports easy bruising and Reports other (anemia) Aller/Immun Denies wheezing Physical Exam Vital Signs: Last Vital Signs Pulse 66 12/13/24 15:03 BP 126/74 12/13/24 15:03 BMI result Body Mass Index 30.4 Const General: comfortable and no acute distress Orientation/consciousness: patient oriented x3 HEENT Other: Unremarkable Head: Yes normal to inspection Neck Neck: Yes normal visual inspection Chest Chest palpation & inspection: normal inspection of the chest Resp Auscultation: clear to auscultation bilaterally Cardio Palpation: normal PMI Heart sounds: S1 normal heart sound present, S2 normal heart sound present, no gallops, no murmurs and no rubs GI Palpation (GI): Soft to palpation Back/Spine/Pelvis Other: unremarkable Skin General skin exam: no rashes or lesions noted Neuro General: patient oriented x3 Speech: No Abnormal speech present Extrem General: Yes normal to inspection Psych Mental Status: mental status grossly normal Assessment & Plan Assessment & Plan (1) Abnormal EKG: Code(s): R94.31 - Abnormal electrocardiogram [ECG] [EKG] Category: Medical (2) RBBB: Code(s): I45.10 - Unspecified right bundle-branch block Category: Medical (3) Hypertension, essential: Code(s): I10 - Essential (primary) hypertension Category: Medical Plan In the recent EKG, underlying rhythm is sinus bradycardia at 54/Min; right bundle-branch block pattern; cannot exclude old inferior infarct; anterolateral T inversions. No prior EKG for comparison. Patient himself has no overt angina, but has exertional shortness of breath At his age, needs assessment for any obstructive coronary disease. There is already an order from primary care physician for echocardiogram. He can complete that. We will also schedule an exercise stress perfusion imaging study. Once these are completed, we can see him back in follow-up. For hypertension, continue enalapril/hydrochlorothiazide. Blood pressure seems stable. Discussion Notes I discussed with the patient the plan to conduct a stress test and a heart ultrasound to evaluate his symptoms of shortness of breath and suffocating feeling. The patient was informed about the process and the importance of these tests in diagnosing potential cardiovascular issues. Patient was informed and verbally consented to the use of an ambient scribe for clinic note documentation during this visit. Orders: Orders NM cardiolite stress test Today R94.31 - Abnormal electrocardiogram [ECG] [EKG] CA stress test Today R94.31 - Abnormal electrocardiogram [ECG] [EKG] Patient Instructions: - Attend the scheduled heart ultrasound and stress test appointments. - Report any worsening of symptoms or new symptoms immediately. Coding Level of Care Code New Pt Level 4 (34843) Complex EM visit Add On G2211 Diagnoses Abnormal EKG R94.31 RBBB I45.10 Hypertension, essential I10
== END 2024-12-13 15:30 | disposition home or self-care (01) ==
LOC: HO.HCS 14:41
PROVIDERS: Visit Provider Internal Medicine
DX: R94.31 Abnormal electrocardiogram [ECG] [EKG] (principal); I45.10 Unspecified right bundle-branch block; I10 Essential (primary) hypertension
CPT/HCPCS: 99204; G2211

== ENCOUNTER → 2024-12-13 14:41 | Outpatient (BNVA) | payer OTHER, SELFPAY | PROVIDERS: Visit Provider Internal Medicine | DX: R94.31 Abnormal electrocardiogram [ECG] [EKG] (principal); I45.10 Unspecified right bundle-branch block; I10 Essential (primary) hypertension | CPT/HCPCS: 99202 ==